=== PATIENT | female | born 1990 | race Caucasian/White ===

== ENCOUNTER → 2017-02-22 | Outpatient (CLI) | payer OTHER, BC ==
[2017-02-22 14:37] LABS: FASTING URINE GLUCOSE NEGATIVE
[2017-02-22 15:57] LABS: 1 HR URINE GLUCOSE NEGATIVE mg/ml
[2017-02-22 16:55] LABS: 2 HR URINE GLUCOSE TRACE mg/ml
[2017-02-22 17:52] LABS: 3 HR URINE GLUCOSE NEGATIVE mg/ml
== END ==
LOC: LAB 14:15
PROVIDERS: Obstetrics & Gynecology
DX: Z13.1 Encounter for screening for diabetes mellitus (principal)

== ENCOUNTER 2017-04-17 12:52 | Outpatient (CLI) | payer OTHER, BC ==
[~2017-04-17] VITALS: Ht 160 cm; Wt 88.0 kg
[~2017-04-17 12:52] MED LIST: PRENATA1 CTB PO
[2017-04-17 13:09] VITALS: BP 119/73
[2017-04-17 13:55] LABS: URINE BILIRUBIN - DIPSTICK NEGATIVE (NEG); URINE BLOOD NEGATIVE (NEG)
== END 2017-04-17 14:25 | disposition home or self-care (01) ==
LOC: OBOUT 12:52 → OB 12:54 → OBOUT 14:25
PROVIDERS: Nurse Practitioner Obstetrics & Gynecology
DX: O60.03 Preterm labor without delivery, third trimester (principal); Z3A.33 33 weeks gestation of pregnancy

== ENCOUNTER 2017-04-18 14:57 | Outpatient (CLI) | payer OTHER, BC ==
[~2017-04-18] VITALS: Ht 160 cm; Wt 88.0 kg
[2017-04-18 15:34] VITALS: BP 123/71
== END 2017-04-18 17:50 | disposition home or self-care (01) ==
LOC: OBOUT 14:57 → OB 14:58 → OBOUT 17:50
DX: O60.03 Preterm labor without delivery, third trimester (principal); Z3A.33 33 weeks gestation of pregnancy

== ENCOUNTER 2017-05-22 18:50 | Inpatient (IN) | payer OTHER, BC ==
[~2017-05-22] VITALS: Ht 157.5 cm; Wt 92.1 kg
[2017-05-22 19:28] VITALS: BP 128/76
[2017-05-22 19:32] LABS: URINE BILIRUBIN - DIPSTICK NEGATIVE (NEG); URINE BLOOD NEGATIVE (NEG)
[2017-05-22 19:50] LABS: URINE SQUAMOUS CELLS TNTC #/hpf (0-5)
[2017-05-22 20:30] LABS: HEMOGLOBIN 12.2 g/dL (12.2-16.2); LYMPH # 1.8 K/mm3 (0.7-4.5); LYMPH % 15.8 % (10-50.0)
[2017-05-22 21:22] LABS: ABO BLOOD TYPE A; RH BLOOD TYPE POSITIVE
--- NOTE | 2017-05-22 21:35 | LABOR NOTE ---
Laboring Subjective Subjective Date 05/22/17 Time 2132 Subjective: Pt is having regular contractions Laboring Objective Objective NST: Reactive Contractions: q 2-3 minutes Cervical dilation: 5 Effacement: 90% Station: -2 Membranes are: Artificially ruptured (with clear fluid) Fetus monitoring? Yes Type: Internal and External Comment: clip applied Laboring Assessment Assessment Progressing? Yes Cephalopelvic disproportion? No Problem List: 1. Delivery normal Laboring Plan Plan Anethesia for epidural? Yes Continue to labor down? Yes Plan for ? No Continue to monitor? Yes Start pushing? No at 2139
--- NOTE | 2017-05-22 22:45 | Delivery Note ---
Delivery note Delivery date: 05/22/17 Delivery time: 2230 Anesthesia: Rafal Reyes, epidural Was labor medically induced? No Gestational age in weeks: 38 weeks Days: 1 day Delivery prior to 39 weeks? Yes Justification for delivery: Active labor Sex: female score at one minute: 8 at 5 minutes: 9 Type of suction: bulb AF: Clear fluid LAC or MLE: none (none) Delivery procedure: Normal Delivery Delivery of placenta: spontaneous Clinical note She is a 27-year-old 4 para 3 who is 38 and 1 weeks gestational age. She came in in active labor and was found be katherin. She rapidly progressed from 2-5 cm and then from 5 cm to full dilation. She delivered spontaneously a liveborn female child at 10:31 PM in the evening of May 22, 2017. The baby had Apgars of 8 at 1 minute and 9 at 5 minutes. PH is currently pending. On delivery the head, it was noted that there was a loose nuchal cord. This was easily reduced. This was followed by deliver the anterior shoulder and the rest of the 's body atraumatically. The oropharynx and nasopharynx were bulb suction. We allowed the baby's cord to continue to pulsate for approximately 1 minute. We then doubly clamped and cut the cord and the baby was placed on the mother's abdomen for further care. The nurses assigned Apgars of 8 at 1 minute and 9 at 5 minutes. We then obtained cord blood as well as cord pH. The pH is pending. Using gentle traction on the cord and countertraction the fundus I was able to easily deliver the placenta intact. It had a normal three-vessel cord. There were no perineal or vaginal lacerations. She has a positive blood, she is rubella immune and was group B streptococcus negative. She plans to breast-feed. Her estimated blood loss was approximately 400 mL. at 3506
[2017-05-23 06:33] LABS: HEMOGLOBIN 10.9 g/dL (12.2-16.2)
[2017-05-23 08:02] VITALS: BP 110/65
--- NOTE | 2017-05-23 08:56 | ACUTE CARE PROGRESS NOTE (QUA) ---
Progress Notes Subjective Date 05/23/17 Time 0855 Note She is doing very well this morning. She is eating and drinking and ablating. She is breast-feeding. Her lochia is normal. Patient/family reports: feeling better, no complaints Objective Findings Last VS-Temp:98.0 B/P:110/65 Pulse:82 Resp:20 SaO2: Last weight lbs:203 oz:0 K.080 Method:Floor Scales Laboratory Tests 05/23/17 0610: Hgb 10.9 L, Hct 31.9 L 05/22/17 224: Cord Blood pH 7.29 L 05/22/172014: MCH 30.3 05/22/172014: WBC 11.7 H, RBC 4.02 L, Hgb 12.2, Hct 35.3 L, MCV 87.9, RDW 12.4, Plt Count 283, MPV 8.0, Gran % 76.8, Gran # 9.0 H, Lymphocytes % 15.8, Monocytes % 5.3, Eosinophils % 1.9, Basophils % 0.2, Lymphocytes # 1.8, Monocytes # 0.6, Eosinophils # 0.2, Basophils # 0.0, PUBS MCHC 34.5, Antibody Screen NEGATIVE, Miscellaneous Test POSITIVE 05/22/17 190: Urine Color YELLOW, Urine Appearance CLEAR, Urine pH 6.0, Ur Specific [place] 1.025, Urine Protein NEGATIVE, Urine Ketones TRACE H, Urine Blood NEGATIVE, Urine Nitrate NEGATIVE, Urine Bilirubin NEGATIVE, Urine Urobilinogen 0.2, Ur Leukocyte Esterase NEGATIVE, Urine RBC OCC, Urine WBC 3-5, Ur Squamous Epith Cells TNTC, Calcium Oxalate Crystal 3+, Urine Bacteria 3+, Urine Mucus 3+, Urine Glucose NEGATIVE Microbiology 05/22 1900 URINE CC: Urine Culture - RES Exam General appearance: normal appearance, alert, awake, no acute distress Reviewed: vital signs, lab results Assessment/Plan Problem List 1. Delivery normal Patient condition Improving, Stable Plan: continue current care This inpt stay is expected to cross 2 MNs from start of care Yes Comments: She is doing very well this morning. She will be seen by Dr. Jacobs tomorrow who will discharge her. at 0855
[2017-05-23 20:20] VITALS: BP 119/79
--- NOTE | 2017-05-24 06:58 | ACUTE CARE PROGRESS NOTE (QUA) ---
Progress Notes Subjective Date 05/24/17 Time 0657 Note This is day number 2. The patient is afebrile. Vital signs stable. Abdomen soft. Lochia normal. Uterine fundus involuting well. Hemoglobin 10.9 g, but clinically stable. Breast-feeding well. Impression: Stable. Assessment/Plan Problem List 1. Delivery normal This inpt stay is expected to cross 2 MNs from start of care Yes at 0658
[2017-05-24 07:52] VITALS: BP 114/73
[2017-05-24 20:00] VITALS: BP 109/64
[2017-05-25 09:00] VITALS: BP 115/70
[2017-05-25] MEDS ORDERED: ACETAMINOPHEN325 M2 PO (10:40)
[2017-05-25] MEDS ORDERED: IBUPROFEN400 MG PO (10:41)
--- OUTSIDE RECORDS SUMMARY | 2017-05-25 14:36 | External Medical Summary Rpt | CCD ---
Author Author , SMITHA BONE Address Unknown Phone [email or web address] Resume Purpose Continuity of Care Document - 01-18-2015 through 2016 Problems Code Diagnosis DOS Provider Status N91.2 Amenorrhea, unspecified O09.891 Supervision of other high risk pregnancies , first trimester O44.12 Placenta previa with hemorrhage, second trimester O80 Encounter for full-term uncomplicat ed delivery O99.810 Abnormal glucose complicatin g R73.09 Other abnormal glucose Z23 Encounter for immunizatio n Z34.81 Encounter for supervision of other normal , first trimester Z34.83 Encounter for supervision of other normal , third trimester Z34.92 Encounter for supervision of normal , unspecified , second trimester Z34.93 Encounter for supervision of normal , unspecified , third trimester Results Labs Lab Lab Date Result Refere Interp Status Commen Order Detail nces retati t Range on Urinalysis dipstick W Reflex Microscopic panel in Urine (05-22-2017 19:00) Bacteri 3+ O complet a 017 ed [Presen 19:00 ce] in Urine sedimen t by Light microsc opy Calcium 05-22-2 3+ NONE complet 017 ed oxalate 19:00 crystal s [Presen ce] in Urine sedimen t by Light microsc opy Mucus 05-22- 3+ OCC complet [Presen 017 ed ce] in 19:00 Urine sedimen t by Light microsc opy Erythro --2 OCC 0 complet cytes 017 ed [Presen 19:00 ce] in Urine sedimen t by Light microsc opy Epithel 05-22-2 TNTC 0#/hp complet ial 017 f - ed cells.s 19:00 5#/hp quamous f [Presen ce] in Urine sedimen t by Microsc opy high power field Leukocy 05-22-2 3-5 O complet devonte 017 wbc/hpf ed [#/volu 19:00 me] in Urine Urinalysis dipstick W Reflex Microscopic panel in Urine (05-22-2017 19:00) Appeara CLEAR CLEAR complet nce of 017 ed Urine 19:00 Bilirub NEGATIV NEG complet in 017 E ed [Presen 19:00 ce] in Urine by Test strip Erythro NEGATIV NEG complet cytes 017 E ed [Presen 19:00 ce] in Urine Color YELLOW YELLOW complet of 017 ed Urine 19:00 Ketones TRACE NEG Abnorma complet 017 l ed [Presen 19:00 ce] in Urine by Automat ed test strip Mucus NEGATIV NEG complet [Presen 017 E ed ce] in 19:00 Urine sedimen t by Light microsc opy Nitrite NEGATIV NEG complet 017 E ed [Presen 19:00 ce] in Urine by Test strip Urobili 0.2 NEG complet nogen 017 ed [Presen 19:00 ce] in Urine by Test strip Uijpq-3-Hbzwhlndirsfv.placental [Presence] in Vaginal fluid (04-18-2017 15:15) Alpha-1 NEGATIV complet -Microg 017 E FOR ed lobulin 15:15 RUPTURE .placen melissa [Presen ce] in Vaginal fluid Urinalysis dipstick W Reflex Microscopic panel in Urine (04-17-2017 13:14) Bacteri 2+ O complet a 017 ed [Presen 13:14 ce] in Urine sedimen t by Light microsc opy Erythro OCC 0 complet cytes 017 ed [Presen 13:14 ce] in Urine sedimen t by Light microsc opy Epithel 5-10 0#/hp complet ial 017 f - ed cells.s 13:14 5#/hp quamous f [Presen ce] in Urine sedimen t by Microsc opy high power field Leukocy 3-5 O complet devonte 017 wbc/hpf ed [#/volu 13:14 me] in Urine Urinalysis dipstick W Reflex Microscopic panel in Urine (04-17-2017 13:14) Appeara CLEAR CLEAR complet nce of 017 ed Urine 13:14 Bilirub NEGATIV NEG complet in 017 E ed [Presen 13:14 ce] in Urine by Test strip Erythro NEGATIV NEG complet cytes 017 E ed [Presen 13:14 ce] in Urine Color YELLOW YELLOW complet of 017 ed Urine 13:14 Ketones NEGATIV NEG complet 017 E ed [Presen 13:14 ce] in Urine by Automat ed test strip Mucus TRACE NEG Abnorma complet [Presen 017 l ed ce] in 13:14 Urine sedimen t by Light microsc opy Nitrite NEGATIV NEG complet 017 E ed [Presen 13:14 ce] in Urine by Test strip Urobili 0.2 NEG complet nogen 017 ed [Presen 13:14 ce] in Urine by Test strip Drugs identified in Urine by Screen method (03-09-2017 15:10) Ampheta NEGATIV <1000 complet mine 017 E ed [Presen 15:10 ce] in Urine by Screen method 11-Hydr NEGATIV <50 complet oxy 017 E ed delta-9 15:10 tetrahy drocann abinol [Presen ce] in Unspeci fied specime n Urinalysis dipstick W Reflex Microscopic panel in Urine (03-09-2017 15:10) Bacteri 3+ O complet a 017 ed [Presen 15:10 ce] in Urine sedimen t by Light microsc opy Erythro TNTC 0 complet cytes 017 ed [Presen 15:10 ce] in Urine sedimen t by Light microsc opy Epithel 5-10 0#/hp complet ial 017 f - ed cells.s 15:10 5#/hp quamous f [Presen ce] in Urine sedimen t by Microsc opy high power field Leukocy 10-20 O complet devonte 017 wbc/hpf ed [#/volu 15:10 me] in Urine Urinalysis dipstick W Reflex Microscopic panel in Urine (03-09-2017 15:10) Appeara TURBID CLEAR complet nce of 017 ed Urine 15:10 Bilirub NEGATIV NEG complet in 017 E ed [Presen 15:10 ce] in Urine by Test strip Erythro 3+ NEG Abnorma complet cytes 017 l ed [Presen 15:10 ce] in Urine Color DK YELLOW complet of 017 YELLOW ed Urine 15:10 Ketones NEGATIV NEG complet 017 E ed [Presen 15:10 ce] in Urine by Automat ed test strip Mucus NEGATIV NEG complet [Presen 017 E ed ce] in 15:10 Urine sedimen t by Light microsc opy Nitrite NEGATIV NEG complet 017 E ed [Presen 15:10 ce] in Urine by Test strip Urobili 0.2 NEG complet nogen 017 ed [Presen 15:10 ce] in Urine by Test strip Glucose [Mass/volume] in Serum or Plasma --3 hours post XXX challenge (02-22-2017 14:16) Glucose NEGATIV complet 017 E ed [Presen 14:16 ce] in Urine by Test strip Glucose TRACE complet 017 ed [Presen 14:16 ce] in Urine by Test strip --2 hours post dose glucose Glucose NEGATIV complet 017 E ed [Presen 14:16 ce] in Urine by Test strip --3 hours post dose glucose Glucose NEGATIV complet 017 E ed [Presen 14:16 ce] in Urine by Automat ed test strip Glucose [Presence] in Urine by Test strip --1 hour post 75 g glucose PO (02-18-2017 14:51) Glucose NEGATIV complet 017 E ed [Presen 14:51 ce] in Urine by Test strip
--- OUTSIDE RECORDS SUMMARY | 2017-05-25 14:36 | External Medical Summary Rpt | CCD ---
Author Author , SMITHA BONE Address Unknown Phone [email or web address] Purpose Continuity of Care Document - 01-18-2015 [...] 19:00 ce] in Urine by Test strip Nesyc-2-Hwaoqwjsntjxq.placental [Presence] in Vaginal fluid (04-18-2017 15:15) Alpha-1 [...]
--- OUTSIDE RECORDS SUMMARY | 2017-05-25 14:37 | External Medical Summary Rpt | CCD ---
Author Author [employer] Organization [employer] Address Unknown Phone Unavailable Purpose Continuity of Care Document - through 2016
--- OUTSIDE RECORDS SUMMARY | 2017-05-25 14:37 | External Medical Summary Rpt | CCD ---
Author Author , SMITHA PRADOSTEPHANIE Address Unknown Phone [email or web address] Support Name Relationship Address Phone ANTOINE, Next Of Kin Unknown Unavailable JANIYA Immunization Name Date Rout CVX Reac Dose Comm Prov Is Faci e tion ent ider Refu lity Give sed n Tdap 09-1 115 0.5 Hist D200 No D200 , 4-20 mL oric 31 31 Adso 17 al rbed Info rmat ion - Sour ce Unsp ecif ied Infl 11-0 150 999 Hist 1005 No 1005 uenz 5-20 oric 00 00 a 16 al Quad Info Inj rmat ion - Sour ce Unsp ecif ied Tdap 08-1 115 999 Hist 1005 No 1005 , 0-20 oric 00 00 Adso 16 al rbed Info rmat ion - Sour ce Unsp ecif ied Hep 01-1 45 999 Hist [place] No [place] B, 4-20 oric UF 13 al Info rmat ion - Sour ce Unsp ecif ied PCV1 08-1 133 999 Hist [place] No FL 3 6-20 oric 12 al Info rmat ion - Sour ce Unsp ecif ied Hep 08-1 85 999 Hist [place] No [place] A, 6-20 oric UF 12 al Info rmat ion - Sour ce Unsp ecif ied Tdap 02-0 115 999 Hist [place] No [place] , 2-20 oric Adso 12 al rbed Info rmat ion - Sour ce Unsp ecif ied Hep 02-0 85 999 Hist [place] No [place] A, 2-20 oric UF 12 al Info rmat ion - Sour ce Unsp ecif ied HPV4 06-1 62 999 Hist [place] No [place] 3-20 oric (Gar 11 al dasi Info l) rmat ion - Sour ce Unsp ecif ied HPV4 02-0 Intr 62 999 Hist [place] No [place] 9-20 amus oric (Gar 11 cula al dasi r Info l) rmat ion - Sour ce Unsp ecif ied HPV4 12-0 Intr 62 999 Hist [place] No [place] 8-20 amus oric (Gar 10 cula al dasi r Info l) rmat ion - Sour ce Unsp ecif ied Infl 12-0 Intr 999 Hist [place] No [place] uenz 8-20 amus oric a 10 cula al Nasa r Info l UF rmat ion - Sour ce Unsp ecif ied
--- OUTSIDE RECORDS SUMMARY | 2017-05-25 14:37 | External Medical Summary Rpt | CCD ---
Author Author , SMITHA PRADOSTEPHANIE Address Unknown Phone [email or web address] Support Name Relationship Address Phone ANTOINE, Next [...] ecif ied Hep 01-1 45 999 Hist [place] No NE B, 4-20 oric UF 13 al Info rmat ion - Sour ce Unsp ecif ied PCV1 08-1 133 999 Hist [place] No NE 3 6-20 oric 12 al Info rmat ion - Sour ce Unsp ecif ied Hep 08-1 85 999 Hist [place] No NE A, 6-20 oric UF 12 al Info rmat ion - Sour ce Unsp ecif ied Tdap 02-0 115 999 Hist [place] No [place] , 2-20 oric Adso 12 al rbed Info rmat ion - Sour ce Unsp ecif ied Hep 02-0 85 999 Hist [place] No NE A, 2-20 oric UF 12 al Info rmat ion - Sour ce Unsp ecif ied HPV4 06-1 62 999 Hist [place] No NE 3-20 oric (Gar 11 al dasi Info l) rmat ion - Sour ce Unsp ecif ied HPV4 02-0 Intr 62 999 Hist [place] No NE 9-20 amus oric (Gar 11 cula al dasi r Info l) rmat ion - Sour ce Unsp ecif ied HPV4 12-0 Intr 62 999 Hist [place] No NE 8-20 amus oric (Gar 10 cula al dasi r Info l) rmat ion - Sour ce Unsp ecif ied Infl 12-0 Intr 999 Hist [place] No NE uenz 8-20 amus oric a 10 cula al Nasa r Info l UF rmat ion - Sour ce Unsp ecif ied
--- OUTSIDE RECORDS SUMMARY | 2017-05-25 14:38 | External Medical Summary Rpt ---
Author Author [employer] Sheets, [employer] Organization [employer] Address Unknown Phone Unavailable Results Urinalysis dipstick W Reflex Microscopic panel in Urine Observa Value Referen Units Interpr Notes Date tion ce etation Range Collected by nurse? Y Hold specimen in OE? N Appeara CLEAR CLEAR No No No May 22 nce of informa informa informa 2017 Urine tion in tion in tion in 7:00 PM source source source data data data Bacteri 3+ O No No No May 22 a informa informa informa 2016 [Presen tion in tion in tion in 7:00 PM ce] in source source source Urine data data data sedimen t by Light microsc opy Bilirub NEGATIV NEG No No No May 22 in E informa informa informa 2016 [Presen tion in tion in tion in 7:00 PM ce] in source source source Urine data data data by Test strip Erythro NEGATIV NEG No No No May 22 cytes E informa informa informa 2016 [Presen tion in tion in tion in 7:00 PM ce] in source source source Urine data data data Calcium 3+ NONE #/hpf No No May 22 informa informa 2017 oxalate tion in tion in 7:00 PM source source crystal data data s [Presen ce] in Urine sedimen t by Light microsc opy Color YELLOW YELLOW No No No May 22 of informa informa informa 2017 Urine tion in tion in tion in 7:00 PM source source source data data data Glucose NEG No No No May 22 [Mass/vol informati informati informati 2017 7:00 ume] in on in on in on in PM Urine by source source source Test data data data strip Ketones TRACE NEG mg/dL Abnorma No May 22 l informa 2016 [Presen tion in 7:00 PM ce] in source Urine data by Automat ed test strip Mucus NEGATIV NEG No No No May 22 [Presen E informa informa informa 2016 ce] in tion in tion in tion in 7:00 PM Urine source source source sedimen data data data t by Light microsc opy Mucus 3+ OCC No No No May 22 [Presen informa informa informa 2016 ce] in tion in tion in tion in 7:00 PM Urine source source source sedimen data data data t by Light microsc opy Nitrite NEGATIV NEG No No No May 22 E informa informa informa 2016 [Presen tion in tion in tion in 7:00 PM ce] in source source source Urine data data data by Test strip pH of 5.0 - 8.5 No Normal No May 22 Urine informati informati 2017 7:00 on in on in PM source source data data Protein NEG mg/dL No No May 22 [Mass/vol informati informati 2016 7:00 ume] in on in on in PM Urine by source source Automated data data test strip Erythro OCC 0 rbc/hpf No No May 22 cytes informa informa 2016 [Presen tion in tion in 7:00 PM ce] in source source Urine data data sedimen t by Light microsc opy Specific 1.005 - No Normal No May 22 gravity 1.030 informati informati 2017 7:00 of Urine on in on in PM source source data data Epithel TNTC 0 - 5 #/hpf No No May 22 ial informa informa 2017 cells.s tion in tion in 7:00 PM quamous source source data data [Presen ce] in Urine sedimen t by Microsc opy high power field Urobili 0.2 NEG E.U./dL No No May 22 nogen informa informa 2016 [Presen tion in tion in 7:00 PM ce] in source source Urine data data by Test strip Leukocy [3 O wbc/hpf No No May 22 jorge alberto wbc/hpf informa informa 2016 [#/volu ; 5 tion in tion in 7:00 PM me] in wbc/hpf source source Urine ] data data Urinalysis dipstick W Reflex Microscopic panel in Urine Observa Value Referen Units Interpr Notes Date tion ce etation Range Collected by nurse? Y Hold specimen in OE? N Appeara CLEAR CLEAR No No No May 22 nce of informa informa informa 2017 Urine tion in tion in tion in 7:00 PM source source source data data data Bilirub NEGATIV NEG No No No May 22 in E informa informa informa 2016 [Presen tion in tion in tion in 7:00 PM ce] in source source source Urine data data data by Test strip Erythro NEGATIV NEG No No No May 22 cytes E informa informa informa 2016 [Presen tion in tion in tion in 7:00 PM ce] in source source source Urine data data data Color YELLOW YELLOW No No No May 22 of informa informa informa 2016 Urine tion in tion in tion in 7:00 PM source source source data data data Glucose NEG No No No May 22 [Mass/vol informati informati informati 2016 7:00 ume] in on in on in on in PM Urine by source source source Test data data data strip Ketones TRACE NEG mg/dL Abnorma No May 22 l informa 2016 [Presen tion in 7:00 PM ce] in source Urine data by Automat ed test strip Mucus NEGATIV NEG No No No May 22 [Presen E informa informa informa 2016 ce] in tion in tion in tion in 7:00 PM Urine source source source sedimen data data data t by Light microsc opy Nitrite NEGATIV NEG No No No May 22 E informa informa informa 2016 [Presen tion in tion in tion in 7:00 PM ce] in source source source Urine data data data by Test strip pH of 5.0 - 8.5 No Normal No May 22 Urine informati informati 2016 7:00 on in on in PM source source data data Protein NEG mg/dL No No May 22 [Mass/vol informati informati 2016 7:00 ume] in on in on in PM Urine by source source Automated data data test strip Specific 1.005 - No Normal No May 22 gravity 1.030 informati informati 2016 7:00 of Urine on in on in PM source source data data Urobili 0.2 NEG E.U./dL No No May 22 nogen informa informa 2016 [Presen tion in tion in 7:00 PM ce] in source source Urine data data by Test strip POC UA Observa Value Referen Units Interpr Notes Date tion ce etation Range UA Tasha No No No No May 4 Color informa informa informa informa 2017 POC tion in tion in tion in tion in 11:56 source source source source AM data data data data UA Clear Clear No No No Oct 4 Appear informa informa informa 2017 POC tion in tion in tion in 11:56 source source source AM data data data UA Gluc Negativ Negativ No No No May 4 POC e e informa informa informa 2017 tion in tion in tion in 11:56 source source source AM data data data UA Trace Negativ No Abnorma No May 4 Ketones (5mg/dl e informa l informa 2017 POC ) tion in tion in 11:56 source source AM data data UA Negativ Negativ No No No May 4 Blood e e informa informa informa 2017 POC tion in tion in tion in 11:56 source source source AM data data data UA pH 5.5 5.0 - No No No May 15 POC 8.0 informa informa informa 2017 tion in tion in tion in 11:56 source source source AM data data data UA 30 Negativ No Abnorma No May 4 Protein mg/dl e informa l informa 2017 POC tion in tion in 11:56 source source AM data data UA 1 mg/dl <=1 No No No May 4 Urobili mg/dl informa informa informa 2017 nogen tion in tion in tion in 11:56 POC source source source AM data data data UA Negativ Negativ No No No May 4 Nitrite e e informa informa informa 2017 POC tion in tion in tion in 11:56 source source source AM data data data UA Leuk Negativ Negativ No No No May 4 Est e e informa informa informa 2017 POC tion in tion in tion in 11:56 source source source AM data data data UA SG >=1.030 1.001 - No No No May 4 POC 1.035 informa informa informa 2017 tion in tion in tion in 11:56 source source source AM data data data Bzliy-4-Vmbzlkgpozumz.placental [Presence] in Vaginal fluid Observa Value Referen Units Interpr Notes Date tion ce etation Range Alpha-1 NEGATIV No No No No Sep 7 -Microg E FOR informa informa informa informa 2017 lobulin RUPTURE tion in tion in tion in tion in 3:15 PM .placen source source source source melissa data data data data [Presen ce] in Vaginal fluid Fibronectin. [Mass/volume] in Vaginal fluid Observa Value Referen Units Interpr Notes Date tion ce etation Range Fibronect NEGATIVE No No Sep 6 in. informati informati FIBRONECT 2017 1:15 [Mass/vol on in on in IN PM ume] in source source INTERPRET Vaginal data data ATION:Sym fluid ptomatic women: There is an increased risk of deliveryw ithin 14 days for positive results obtained between 24weeks and 34 weeks,6 days of gestation .Asymptom atic women: There is an increased risk of deliverya t less than 35 weeks for positive results obtained weeks and 30 weeks,6 days of gestation . Urinalysis dipstick W Reflex Microscopic panel in Urine Observa Value Referen Units Interpr Notes Date tion ce etation Range Collected by nurse? Y Hold specimen in OE? N Appeara CLEAR CLEAR No No No Sep 6 nce of informa informa informa 2017 Urine tion in tion in tion in 1:14 PM source source source data data data Bacteri 2+ O No No No Sep 6 a informa informa informa 2017 [Presen tion in tion in tion in 1:14 PM ce] in source source source Urine data data data sedimen t by Light microsc opy Bilirub NEGATIV NEG No No No Sep 6 in E informa informa informa 2017 [Presen tion in tion in tion in 1:14 PM ce] in source source source Urine data data data by Test strip Erythro NEGATIV NEG No No No Sep 6 cytes E informa informa informa 2017 [Presen tion in tion in tion in 1:14 PM ce] in source source source Urine data data data Color YELLOW YELLOW No No No Sep 6 of informa informa informa 2017 Urine tion in tion in tion in 1:14 PM source source source data data data Glucose NEG No No No Sep 6 [Mass/vol informati informati informati 2017 1:14 ume] in on in on in on in PM Urine by source source source Test data data data strip Ketones NEGATIV NEG mg/dL No No Sep 6 E informa informa 2017 [Presen tion in tion in 1:14 PM ce] in source source Urine data data by Automat ed test strip Mucus TRACE NEG No Abnorma No Sep 6 [Presen informa l informa 2016 ce] in tion in tion in 1:14 PM Urine source source sedimen data data t by Light microsc opy Nitrite NEGATIV NEG No No No Sep 6 E informa informa informa 2017 [Presen tion in tion in tion in 1:14 PM ce] in source source source Urine data data data by Test strip pH of 5.0 - 8.5 No Normal No Sep 6 Urine informati informati 2017 1:14 on in on in PM source source data data Protein NEG mg/dL No No Sep 6 [Mass/vol informati informati 2017 1:14 ume] in on in on in PM Urine by source source Automated data data test strip Erythro OCC 0 rbc/hpf No No Sep 6 cytes informa informa 2017 [Presen tion in tion in 1:14 PM ce] in source source Urine data data sedimen t by Light microsc opy Specific 1.005 - No Normal No Sep 6 gravity 1.030 informati informati 2017 1:14 of Urine on in on in PM source source data data Epithel 5-10 0 - 5 #/hpf No No Sep 6 ial informa informa 2017 cells.s tion in tion in 1:14 PM quamous source source data data [Presen ce] in Urine sedimen t by Microsc opy high power field Urobili 0.2 NEG E.U./dL No No Sep 6 nogen informa informa 2017 [Presen tion in tion in 1:14 PM ce] in source source Urine data data by Test strip Leukocy [3 O wbc/hpf No No Sep 6 jorge alberto wbc/hpf informa informa 2017 [#/volu ; 5 tion in tion in 1:14 PM me] in wbc/hpf source source Urine ] data data Urinalysis dipstick W Reflex Microscopic panel in Urine Observa Value Referen Units Interpr Notes Date tion ce etation Range Collected by nurse? Y Hold specimen in OE? N Appeara CLEAR CLEAR No No No Sep 6 nce of informa informa informa 2017 Urine tion in tion in tion in 1:14 PM source source source data data data Bilirub NEGATIV NEG No No No Sep 6 in E informa informa informa 2017 [Presen tion in tion in tion in 1:14 PM ce] in source source source Urine data data data by Test strip Erythro NEGATIV NEG No No No Sep 6 cytes E informa informa informa 2016 [Presen tion in tion in tion in 1:14 PM ce] in source source source Urine data data data Color YELLOW YELLOW No No No Sep 6 of informa informa informa 2016 Urine tion in tion in tion in 1:14 PM source source source data data data Glucose NEG No No No Sep 6 [Mass/vol informati informati informati 2017 1:14 ume] in on in on in on in PM Urine by source source source Test data data data strip Ketones NEGATIV NEG mg/dL No No Sep 6 E informa informa 2016 [Presen tion in tion in 1:14 PM ce] in source source Urine data data by Automat ed test strip Mucus TRACE NEG No Abnorma No Sep 6 [Presen informa l informa 2016 ce] in tion in tion in 1:14 PM Urine source source sedimen data data t by Light microsc opy Nitrite NEGATIV NEG No No No Sep 6 E informa informa informa 2016 [Presen tion in tion in tion in 1:14 PM ce] in source source source Urine data data data by Test strip pH of 5.0 - 8.5 No Normal No Sep 6 Urine informati informati 2017 1:14 on in on in PM source source data data Protein NEG mg/dL No No Sep 6 [Mass/vol informati informati 2017 1:14 ume] in on in on in PM Urine by source source Automated data data test strip Specific 1.005 - No Normal No Sep 6 gravity 1.030 informati informati 2017 1:14 of Urine on in on in PM source source data data Urobili 0.2 NEG E.U./dL No No Sep 6 nogen informa informa 2017 [Presen tion in tion in 1:14 PM ce] in source source Urine data data by Test strip Fibronectin. [Mass/volume] in Vaginal fluid Observa Value Referen Units Interpr Notes Date tion ce etation Range Fibronect NEGATIVE No No Mar 09 in. informati informati FIBRONECT 2017 3:10 [Mass/vol on in on in IN PM ume] in source source INTERPRET Vaginal data data ATION:Sym fluid ptomatic women: There is an increased risk of deliveryw ithin 14 days for positive results obtained between 24weeks and 34 weeks,6 days of gestation .Asymptom atic women: There is an increased risk of deliverya t less than 35 weeks for positive results obtained [id number] weeks and 30 weeks,6 days of gestation . Drugs identified in Urine by Screen method Observa Value Referen Units Interpr Notes Date tion ce etation Range Collected by nurse? Y Hold specimen in OE? N Positive urine drug screen samples are stored for 7 days. Contact the Lab if confirmation of positives is needed. Ampheta NEGATIV <1000 ng/mL No No Mar 09 mine E informa informa 2016 [Presen tion in tion in 3:10 PM ce] in source source Urine data data by Screen method Barbitura <200 ng/mL No No Mar 09 jorge alberto informati informati 2017 3:10 [Mass/vol on in on in PM ume] in source source Urine by data data Screen method Benzodiaz 200 ng/mL ng/mL No No Mar 09 epines informati informati 2017 3:10 [Mass/vol on in on in PM ume] in source source Serum or data data Plasma by Screen method Cocaine <300 ng/g No No Mar 09 [Mass/vol informati informati 2017 3:10 ume] in on in on in PM Unspecifi source source ed data data specimen Methadone <300 ng/mL No No Mar 09 informati informati 2017 3:10 [Mass/vol on in on in PM ume] in source source Unspecifi data data ed specimen Opiates <300 ng/mL No No Mar 09 [Mass/vol informati informati 2017 3:10 ume] in on in on in PM Unspecifi source source ed data data specimen Phencycli <25 ng/mL No No Mar 09 dine informati informati 2017 3:10 [Mass/vol on in on in PM ume] in source source Unspecifi data data ed specimen 11-Hydr NEGATIV <50 ng/mL No No Mar 09 oxy E informa informa 2017 delta-9 tion in tion in 3:10 PM source source tetrahy data data drocann abinol [Presen ce] in Unspeci fied specime n Urinalysis dipstick W Reflex Microscopic panel in Urine Observa Value Referen Units Interpr Notes Date tion ce etation Range Collected by nurse? Y Hold specimen in OE? N Appeara TURBID CLEAR No No No Mar 09 nce of informa informa informa 2016 Urine tion in tion in tion in 3:10 PM source source source data data data Bacteri 3+ O No No No Mar 09 a informa informa informa 2016 [Presen tion in tion in tion in 3:10 PM ce] in source source source Urine data data data sedimen t by Light microsc opy Bilirub NEGATIV NEG No No No Mar 09 in E informa informa informa 2016 [Presen tion in tion in tion in 3:10 PM ce] in source source source Urine data data data by Test strip Erythro 3+ NEG No Abnorma No Mar 09 cytes informa l informa 2016 [Presen tion in tion in 3:10 PM ce] in source source Urine data data Color DK YELLOW No No No Mar 09 of YELLOW informa informa informa 2016 Urine tion in tion in tion in 3:10 PM source source source data data data Glucose NEG No No No Mar 09 [Mass/vol informati informati informati 2016 3:10 ume] in on in on in on in PM Urine by source source source Test data data data strip Ketones NEGATIV NEG mg/dL No No Mar 09 E informa informa 2016 [Presen tion in tion in 3:10 PM ce] in source source Urine data data by Automat ed test strip Mucus NEGATIV NEG No No No Mar 09 [Presen E informa informa informa 2016 ce] in tion in tion in tion in 3:10 PM Urine source source source sedimen data data data t by Light microsc opy Nitrite NEGATIV NEG No No No Mar 09 E informa informa informa 2016 [Presen tion in tion in tion in 3:10 PM ce] in source source source Urine data data data by Test strip pH of 5.0 - 8.5 No Normal No Mar 09 Urine informati informati 2017 3:10 on in on in PM source source data data Protein NEG mg/dL High No Mar 09 [Mass/vol informati 2017 3:10 ume] in on in PM Urine by source Automated data test strip Erythro TNTC 0 rbc/hpf No No Mar 09 cytes informa informa 2016 [Presen tion in tion in 3:10 PM ce] in source source Urine data data sedimen t by Light microsc opy Specific 1.005 - No Normal No Mar 09 gravity 1.030 informati informati 2017 3:10 of Urine on in on in PM source source data data Epithel 5-10 0 - 5 #/hpf No No Mar 09 ial informa informa 2016 cells.s tion in tion in 3:10 PM quamous source source data data [Presen ce] in Urine sedimen t by Microsc opy high power field Urobili 0.2 NEG E.U./dL No No Mar 09 nogen informa informa 2016 [Presen tion in tion in 3:10 PM ce] in source source Urine data data by Test strip Leukocy [10 O wbc/hpf No No Mar 09 jorge alberto wbc/hpf informa informa 2016 [#/volu ; 20 tion in tion in 3:10 PM me] in wbc/hpf source source Urine ] data data Urinalysis dipstick W Reflex Microscopic panel in Urine Observa Value Referen Units Interpr Notes Date tion ce etation Range Collected by nurse? Y Hold specimen in OE? N Appeara TURBID CLEAR No No No Mar 09 nce of informa informa informa 2016 Urine tion in tion in tion in 3:10 PM source source source data data data Bilirub NEGATIV NEG No No No Mar 09 in E informa informa informa 2016 [Presen tion in tion in tion in 3:10 PM ce] in source source source Urine data data data by Test strip Erythro 3+ NEG No Abnorma No Mar 09 cytes informa l informa 2016 [Presen tion in tion in 3:10 PM ce] in source source Urine data data Color DK YELLOW No No No Mar 09 of YELLOW informa informa informa 2017 Urine tion in tion in tion in 3:10 PM source source source data data data Glucose NEG No No No Mar 09 [Mass/vol informati informati informati 2016 3:10 ume] in on in on in on in PM Urine by source source source Test data data data strip Ketones NEGATIV NEG mg/dL No No Mar 09 E informa informa 2016 [Presen tion in tion in 3:10 PM ce] in source source Urine data data by Automat ed test strip Mucus NEGATIV NEG No No No Mar 09 [Presen E informa informa informa 2016 ce] in tion in tion in tion in 3:10 PM Urine source source source sedimen data data data t by Light microsc opy Nitrite NEGATIV NEG No No No Mar 09 E informa informa informa 2016 [Presen tion in tion in tion in 3:10 PM ce] in source source source Urine data data data by Test strip pH of 5.0 - 8.5 No Normal No Mar 09 Urine informati informati 2016 3:10 on in on in PM source source data data Protein NEG mg/dL High No Mar 09 [Mass/vol informati 2016 3:10 ume] in on in PM Urine by source Automated data test strip Specific 1.005 - No Normal No Mar 09 gravity 1.030 informati informati 2016 3:10 of Urine on in on in PM source source data data Urobili 0.2 NEG E.U./dL No No Mar 09 nogen informa informa 2016 [Presen tion in tion in 3:10 PM ce] in source source Urine data data by Test strip Glucose [Mass/volume] in Serum or Plasma --3 hours post XXX challenge Observa Value Referen Units Interpr Notes Date tion ce etation Range Glucose No mg/dL No No Feb 22 [Mass/vol informati informati informati 2016 2:16 ume] in on in on in on in PM Serum or source source source Plasma data data data --1 hour post dose glucose Glucose NEGATIV No mg/ml No No Feb 22 E informa informa informa 2016 [Presen tion in tion in tion in 2:16 PM ce] in source source source Urine data data data by Test strip Glucose No mg/dL No No Madi 14 [Mass/vol informati informati informati 2016 2:16 ume] in on in on in on in PM Serum or source source source Plasma data data data --2 hours post 100 g glucose PO Glucose TRACE No mg/ml No No Feb 22 informa informa informa 2016 [Presen tion in tion in tion in 2:16 PM ce] in source source source Urine data data data by Test strip --2 hours post dose glucose Glucose No mg/dL No No Feb 22 [Mass/vol informati informati informati 2016 2:16 ume] in on in on in on in PM Serum or source source source Plasma data data data --3 hours post 100 g glucose PO Glucose NEGATIV No mg/ml No No Feb 22 E informa informa informa 2016 [Presen tion in tion in tion in 2:16 PM ce] in source source source Urine data data data by Test strip --3 hours post dose glucose Glucose 70 - 110 mg/dL Normal No Feb 22 [Mass/vol informati 2016 2:16 ume] in on in PM Serum or source Plasma data --pre 12 hour fast Glucose NEGATIV No mg/dL No No Feb 22 E informa informa informa 2016 [Presen tion in tion in tion in 2:16 PM ce] in source source source Urine data data data by Automat ed test strip Glucose [Presence] in Urine by Test strip --1 hour post 75 g glucose PO Observa Value Referen Units Interpr Notes Date ce etation Range Glucose No mg/dL No No Feb 18 [Mass/vol informati informati informati 2016 2:51 ume] in on in on in on in PM Serum or source source source Plasma data data data --1 hour post dose glucose Glucose NEGATIV No mg/ml No No Feb 18 E informa informa informa 2016 [Presen tion in tion in tion in 2:51 PM ce] in source source source Urine data data data by Test strip CBC W Auto Differential panel in Blood Observa Value Referen Units Interpr Notes Date tion ce etation Range Basophils 0 - 0.2 K/MM3 Normal No Feb 18 informati 2016 2:51 [#/volume on in PM ] in source Blood by data Automated count Basophils 0.1 - 2.0 % Normal No Feb 18 informati 2016 2:51 leukocyte on in PM s in source Blood by data Automated count Eosinophi 0.0 - 0.4 K/mm3 Normal No Feb 18 ls 2016 2:51 [#/volume on in PM ] in source Blood by data Automated count Eosinophi 0.1 - % Normal No Feb 18 ls 12.0 inform2016 2:51 leukocyte on in PM s in source Blood by data Automated count Granulocy 1.8 - 7.8 K/mm3 High No Feb 18 jorge alberto 2016 2:51 [#/volume on in PM ] in source Blood by data Automated count Granulocy 37.0 - % High No Feb 18 80.0 informati 2016 2:51 leukocyte on in PM s in source Blood by data Automated count Hematocri 37.0 - % Normal No Feb 18 t [Volume 47.0 2016 2:51 on in PM Fraction] source of Blood data Hemoglobi 12.2 - g/dL Normal Feb 18 n 16.2 2016 2:51 [Mass/vol on in PM ume] in source Blood data Lymphocyt 0.7 - 4.5 K/mm3 Normal No Feb 18 es 2016 2:51 [#/volume on in PM ] in source Unspecifi data ed specimen by Automated count Lymphocyt 10 - 50.0 % Normal No Feb 18 es 2016 2:51 [#/volume on in PM ] in source Unspecifi data ed specimen by Automated count Erythrocy 27 - 31.2 pg High No Feb 18 te mean 2016 2:51 corpuscul on in PM ar source hemoglobi data n [Entitic mass] Erythrocy 31.8 - g/dl Normal No Feb 18 te mean 35.4 2016 2:51 corpuscul on in PM ar source hemoglobi data n concentra tion [Mass/vol ume] by Automated count Erythrocy 82.2 - fl Normal Feb 18 te mean 97.8 ati 2016 2:51 corpuscul on in PM ar volume source [Entitic data volume] by Automated count Monocytes 0.1 - 1.0 K/mm3 Normal No Feb 182016 2:51 [#/volume on in PM ] in source Blood by data Automated count Monocytes 1.7 - 9.3 % Normal No Feb 18 informati 2016 2:51 leukocyte on in PM s in source Blood by data Automated count Platelet 7.4 - fl Low No Feb 18 mean 10.4 ati 2016 2:51 volume on in PM [Entitic source volume] data in Blood by Automated count Platelets 142 - 424 K/mm3 Normal No Feb 18 inform2016 2:51 [#/volume on in PM ] in source Blood data Erythrocy 4.2 - 5.4 M/mm3 Low No Feb 18 jorge alberto 2016 2:51 [#/volume on in PM ] in source Amniotic data fluid Erythrocy 11.5 - % Normal No Feb 18 te 17.5 informati 2016 2:51 distribut on in PM ion width source [Entitic data volume] by Automated count Leukocyte 4.8 - K/MM3 Normal No Feb 18 s 10.8 2016 2:51 [#/volume on in PM ] in source Blood data AFP Tetra Observa Value Referen Units Interpr Notes Date tion ce etation Range Results REPORT No No No No January 01 informa informa informa informa 2017 tion in tion in tion in tion in 12:34 source source source source PM data data data data Alpha-1-F No No No No January 01 etoprotei informati informati informati informati 2016 n on in on in on in on in 12:34 PM [Mass/vol source source source source ume] in data data data data Serum or Plasma Alpha-1-F No No No No January 01 etoprotei informati informati informati informati 2016 n on in on in on in on in 12:34 PM [Multiple source source source source of the data data data data median] adjusted in Serum or Plasma Choriogon No No No No January 01 adotropin informati informati informati informati 2017 on in on in on in on in 12:34 PM [Units/vo source source source source lume] in data data data data Serum or Plasma Choriogon No No No No January 01 adotropin informati informati informati informati 2017 on in on in on in on in 12:34 PM [Multiple source source source source of the data data data data median] adjusted in Serum or Plasma Estriol.u No No No No January 01 nconjugat informati informati informati informati 2016 ed on in on in on in on in 12:34 PM [Mass/vol source source source source ume] in data data data data Serum or Plasma Estriol.u No No No No January 01 nconjugat informati informati informati informati 2017 ed on in on in on in on in 12:34 PM [Multiple source source source source of the data data data data median] adjusted in Serum or Plasma Inhibin A No No No No January 01 informati informati informati informati 2017 [Mass/vol on in on in on in on in 12:34 PM ume] in source source source source Serum data data data data Inhibin A No No No No January 01 informati informati informati informati 2017 [Multiple on in on in on in on in 12:34 PM of the source source source source median] data data data data adjusted in Serum Neural No No No No January 01 tube informati informati informati informati 2017 defect on in on in on in on in 12:34 PM risk in source source source source Fetus data data data data Trisomy No No No No January 01 21 risk informati informati informati informati 2017 in Fetus on in on in on in on in 12:34 PM source source source source data data data data Second SCREEN No No No No January 01 trimest NEGATIV informa informa informa informa 2017 er quad E tion in tion in tion in tion in 12:34 source source source source PM materna data data data data l screen [interp retatio n] in Serum Narrati ve Trisomy No No No No January 01 21 risk informati informati informati informati 2017 based on on in on in on in on in 12:34 PM maternal source source source source age in data data data data Fetus Trisomy No No No No January 01 18 risk informati informati informati informati 2017 in Fetus on in on in on in on in 12:34 PM source source source source data data data data Trisomy No No No No January 01 18 risk informati informati informati informati 2017 based on on in on in on in on in 12:34 PM maternal source source source source age in data data data data Fetus Second SCREEN No No No THIS January 01 trimest NEGATIV informa informa informa RESULT 2017 er quad E tion in tion in tion in IS 12:34 source source source SCREEN PM materna data data data NEGATIV l E FOR screen [interp OSB, retatio DOWN n] in SYNDROM Serum EAND Narrati TRISOMY ve 18. THE AFP MoM AND PATIENT SPECIFI C RISKS ARECALC ULATED BASED ON THE GESTATI ONAL AGE AND THE CLINICA LINFORM ATION PROVIDE D. THIS TEST CAN IDENTIF Y UP TO 80% OFOPEN NEURAL TUBE DEFECTS . CLOSED NEURAL TUBE DEFECTS AND SOME OPEN DEFECTS MAY NOT BE DETECTE D BY THIS TEST. THECOMB INATION OF MATERNA L AGE, AFP, hCG, uE3, AND DIAINDE NTIFIES 75-80% OF DOWN SYNDROM E. THE COMBINA TIONOF MATERNA L AGE, AFP, hCG AND uE3 IDENTIF IES 60% OF TRISOMY 18 PREGNAN CIES. THE CINTHIA N COLLEGE OF OBSTETR ICIANS ANDGYNE COLOGIS TS RECOMME NDS AMNIOCE NTESIS BE OFFERED TO WOMENAG E 35 AND OLDER. RECALCU LATIONS ARE NOT RECOMME NDED WHENGES TATIONA L DATING BY LMP AND ULTRASO UND ARE WITHIN 10 DAYS.ABILIO Nuñez, Ph.D., FACMGPR INCIPAL GENETIC S TECHNIC AL DIRECTO RREFERE NCES: AVAILAB LE UPON REQUEST .MULTIP LES OF MEDIAN CUTOFFS FOR AFP ELEVATI ONSSING LETON 2.5IDD 2.0BLAC K 2.8TWIN S 4.5DSR CUTOFF 1:270T1 8 CUTOFF 1:100AB BREVIAT ION DEFINIT IONSIDD - INSULIN DEP DIABETE SOSBR- OPEN SPINA BIFIDA RISKDSR - DOWN SYNDROM E RISKT18 - TRISOMY 18DOWN SYNDROM E AND TRISOMY 18 SCREENI NG ARE CONSIDE REDINVE STIGATI ONAL.FO R FURTHER INQUIRI ES CONTACT [facility] S [phone] NE. Gestation No No No No January 01 al age informati informati informati informati 2016 on in on in on in on in 12:34 PM source source source source data data data data Gestati FREEDOM No No No No January 01 onal informa informa informa informa 2017 age 16 tion in tion in tion in tion in 12:34 method source source source source PM data data data data Age at No No No No January 01 delivery informati informati informati informati 2016 on in on in on in on in 12:34 PM source source source source data data data data Mother' CAUCASI No No No No January 01 s race AN informa informa informa informa 2017 tion in tion in tion in tion in 12:34 source source source source PM data data data data Body No No No No January 01 weight informati informati informati informati 2017 on in on in on in on in 12:34 PM source source source source data data data data Insulin NO No No No No January 01 informa informa informa informa 2016 depende tion in tion in tion in tion in 12:34 nt source source source source PM diabete data data data data s mellitu s [Presen ce] Multipl NO No No No No January 01 e informa informa informa informa 2016 preganc tion in tion in tion in tion in 12:34 y source source source source PM data data data data Hep C Ab Observa Value Referen Units Interpr Notes Date tion ce etation Range Hep C Negativ Negativ No No No Oct 10 Ab e e informa informa informa 2016 tion in tion in tion in 10:30 source source source AM data data data Hep Bs Ag Observa Value Referen Units Interpr Notes Date tion ce etation Range Hepatit Negativ Negativ No No No Oct 10 is B e e informa informa informa 2017 virus tion in tion in tion in 10:29 surface source source source AM Ag data data data [Presen ce] in Serum by Immunoa ssay Rubella G Observa Value Referen Units Interpr Notes Date tion ce etation Range Rubella 1.660 No Index_V No < 0.90 Oct 10 IgG informa alue informa - 2017 tion in tion in Negativ 8:27 AM source source e\\.br\\N data data o signifi cant level of detecta ble rubella IgG Antibod y\\.br\\( Presume d Non-Imm une)\\.b r\\\\.br\\ 0.90 to 0.99 - Equivoc al\\.br\\ Repeat testing in 10-14 days is recomme nded\\.b r\\\\.br\\ > or = 1.00 - Positiv e\\.br\\P revious exposur e or vaccina tion (Immune )\\.br\\\\ .br\\Not e: The magnitu de of the measure d result is not indicat mitchell of the amount of antibod y present . Glyco Observa Value Referen Units Interpr Notes Date tion ce etation Range Hemoglo 4.8 <=7.0 % No Referen Oct 09 bin informa ce 2017 A1c/Hem tion in Interva 7:14 PM oglobin source l for .total data Hgb in A1c\\.br Blood \\\\.br\\H gb A1c Interpr etation \\.br\\-- ------- -- ------- ------- --\\.br\\ \\.br\\ < 6.0 Non-Antonia betic Range\\. br\\6.0 - 7.0 ADA Therape utic Target\\ .br\\ > 7.0 Action suggest ed ABSC IgG Observa Value Referen Units Interpr Notes Date tion ce etation Range ABSC Negativ No No No No Oct 09 IgG Int e informa informa informa informa 2016 tion in tion in tion in tion in 6:53 PM source source source source data data data data ABORh Observa Value Referen Units Interpr Notes Date tion ce etation Range ABORh A POS No No No No Oct 09 Int informa informa informa informa 2016 tion in tion in tion in tion in 6:44 PM source source source source data data data data Auto Diff Observa Value Referen Units Interpr Notes Date tion ce etation Range Neutrop 65.1 No % No No Oct 09 hils informa informa informa 2016 [#/volu tion in tion in tion in 6:10 PM me] in source source source Blood data data data by Automat ed count Lymphoc 23.5 No % No No Oct 09 ytes informa informa informa 2016 [#/volu tion in tion in tion in 6:10 PM me] in source source source Blood data data data by Automat ed count Monocyt 7.9 No % No No Oct 09 es informa informa informa 2016 [#/volu tion in tion in tion in 6:10 PM me] in source source source Blood data data data by Automat ed count Eos 2.9 No % No No Feb 28 Percent informa informa informa 2017 tion in tion in tion in 6:10 PM source source source data data data Baso 0.6 No % No No Feb 28 Percent informa informa informa 2017 tion in tion in tion in 6:10 PM source source source data data data Neut# 4.0 1.8 - x10(3)/ No No Feb 28 7.7 mcL informa informa 2017 tion in tion in 6:10 PM source source data data Lymph# 1.4 0.6 - x10(3)/ No No Feb 28 4.8 mcL informa informa 2017 tion in tion in 6:10 PM source source data data Wirt# 0.5 0.0 - x10(3)/ No No Feb 28 1.3 mcL informa informa 2017 tion in tion in 6:10 PM source source data data Eos# 0.2 0.0 - x10(3)/ No No Feb 28 0.5 mcL informa informa 2017 tion in tion in 6:10 PM source source data data Baso# 0.0 0.0 - x10(3)/ No No Feb 28 0.2 mcL informa informa 2017 tion in tion in 6:10 PM source source data data CBC Observa Value Referen Units Interpr Notes Date tion ce etation Range LEUKOCY 6.1 4.0 - x10(3)/ No No Feb 28 JORGE ALBERTO 11.0 mcL informa informa 2017 tion in tion in 6:10 PM source source data data Erythro 4.44 3.80 - x10(6)/ No No Feb 28 cytes 5.10 mcL informa informa 2016 [#/volu tion in tion in 6:10 PM me] in source source Blood data data by Automat ed count Hemoglo 14.0 12.0 - gm/dL No No Feb 28 bin 15.6 informa informa 2017 [Mass/v tion in tion in 6:10 PM olume] source source in data data Blood Hematoc 41.0 35.7 - % No No Feb 28 rit 45.9 informa informa 2017 [Volume tion in tion in 6:10 PM source source Fractio data data n] of Blood by Automat ed count Erythro 92.5 82.5 - fL No No Oct 09 cyte 99.8 informa informa 2017 mean tion in tion in 6:10 PM corpusc source source ular data data volume [Entiti c volume] by Automat ed count Erythro 31.5 27.0 - pg No No Oct 09 cyte 34.3 informa informa 2017 mean tion in tion in 6:10 PM corpusc source source ular data data hemoglo bin [Entiti c mass] by Automat ed count Erythro 34.0 32.1 - gm/dL No No Oct 09 cyte 35.3 informa informa 2017 mean tion in tion in 6:10 PM corpusc source source ular data data hemoglo bin concent ration [Mass/v olume] by Automat ed count Erythro 11.9 11.5 - % No No Oct 09 cyte 15.0 informa informa 2017 distrib tion in tion in 6:10 PM ution source source width data data [Ratio] by Automat ed count Platele 319 144 - x10(3)/ No No Oct 09 ts 423 mcL informa informa 2016 [#/volu tion in tion in 6:10 PM me] in source source Blood data data by Automat ed count MPV 7.9 6.8 - fL No No Oct 09 10.8 informa informa 2017 tion in tion in 6:10 PM source source data data ABSC IgG Observa Value Referen Units Interpr Notes Date tion ce etation Range ABSC Negativ No No No No Jun 15 IgG Int e informa informa informa informa 2016 tion in tion in tion in tion in 5:43 PM source source source source data data data data ABORh Observa Value Referen Units Interpr Notes Date tion ce etation Range ABORh A POS No No No No Jun 15 Int informa informa informa informa 2016 tion in tion in tion in tion in 5:43 PM source source source source data data data data Hemogram Observa Value Referen Units Interpr Notes Date tion ce etation Range LEUKOCY 12.9 4.0 - x10(3)/ High No Jun 15 JORGE ALBERTO 11.0 mcL informa 2016 tion in 5:02 PM source data Erythro 3.95 3.80 - x10(6)/ No No Jun 4 cytes 5.10 mcL informa informa 2016 [#/volu tion in tion in 5:02 PM me] in source source Blood data data by Automat ed count Hemoglo 12.4 12.0 - gm/dL No No Jun 4 bin 15.6 informa informa 2016 [Mass/v tion in tion in 5:02 PM olume] source source in data data Blood Hematoc 36.0 35.7 - % No No Jun 15 rit 45.9 informa informa 2016 [Volume tion in tion in 5:02 PM source source Fractio data data n] of Blood by Automat ed count Erythro 91.1 82.5 - fL No No Jun 15 cyte 99.8 informa informa 2016 mean tion in tion in 5:02 PM corpusc source source ular data data volume [Entiti c volume] by Automat ed count Erythro 31.4 27.0 - pg No No Jun 15 cyte 34.3 informa informa 2016 mean tion in tion in 5:02 PM corpusc source source ular data data hemoglo bin [Entiti c mass] by Automat ed count Erythro 34.4 32.1 - gm/dL No No Jun 15 cyte 35.3 informa informa 2016 mean tion in tion in 5:02 PM corpusc source source ular data data hemoglo bin concent ration [Mass/v olume] by Automat ed count Erythro 12.2 11.5 - % No No Jun 15 cyte 15.0 informa informa 2016 distrib tion in tion in 5:02 PM ution source source width data data [Ratio] by Automat ed count Platele 248 144 - x10(3)/ No No Jun 4 ts 423 mcL informa informa 2016 [#/volu tion in tion in 5:02 PM me] in source source Blood data data by Automat ed count MPV 7.8 6.8 - fL No No Jun 4 10.8 informa informa 2016 tion in tion in 5:02 PM source source data data Gp B Strep DNA Observa Value Referen Units Interpr Notes Date tion ce etation Range Strep B Negativ No No No No Oct 14 DNA e informa informa informa informa 2016 tion in tion in tion in tion in 11:29 source source source source AM data data data data Strep B TEST No No No No May 25 Interp INFORMA informa informa informa informa 2016 TION: tion in tion in tion in tion in 11:29 This source source source source AM qualita data data data data tive assay utilize s molecul ar amplifi cation to detect a portion of the Strepto coccus agalact iae genome and is intende d for a screen of antepar alejandro women in 35-37 weeks gestati on. This assay utilize s the [employer] aniya by [employer] and its perform ance has been verifie d by [facility] or[facility]. A negativ e result does not rule out the presenc e the Group B Strep in concent rations below the limit of detecti on for the assay. Chlamyd/GC TMA Observa Value Referen Units Interpr Notes Date tion ce etation Range Chlamyd Negativ No No No No May 24 ia e informa informa informa informa 2016 trachom tion in tion in tion in tion in 10:45 atis source source source source AM data data data data Neisser Negativ No No No Testing May 24 ia e informa informa informa 2016 gonorrh tion in tion in tion in methodo 10:45 oeae source source source logy is AM data data data transcr iption mediate d amplifi cation (TMA) using the Aptima Combo 2 assay from [employer] be.\\.br \\A negativ e result does not complet freida rule out a Chlamyd ia trachom atis or Neisser ia gonorrh oeae infecti on due to potenti al inhibit ors or levels present below the limit of detecti on by this assay. Results are depende nt on proper collect ion and transpo rt of specime n. This test is indicat ed for medical purpose s only and should not be used for legal or forensi c purpose s.\\.br\\ \\.br\\Th e perform ance charact eristic s of this test were validat ed by [facility] are laborat ory. This assay is FDA cleared to test the followi ng specime ns: clinici an-sameer ected endocer vical, vaginal and male urethra l swab specime ns, patient collect ed vaginal specime ns within a clinic setting , Thin Prep Specime ns in Preserv Cyt Solutio n, and first-s tream, unprese rved male urine specime ns. Testing on female urine is not FDA approve d by this methodo logy, but has been develop ed and validat ed by the [facility] are laborat ory. Detaile d methodo logy is availab le upon request . POC UA Observa Value Referen Units Interpr Notes Date tion ce etation Range UA Tasha No No No No Sep 14 Color informa informa informa informa 2016 POC tion in tion in tion in tion in 8:51 AM source source source source data data data data UA Clear Clear No No No Sep 14 Appear informa informa informa 2016 POC tion in tion in tion in 8:51 AM source source source data data data UA Gluc 100 Negativ No Abnorma No Sep 14 POC mg/dl e informa l informa 2016 tion in tion in 8:51 AM source source data data UA Negativ Negativ No No No Sep 14 Ketones e e informa informa informa 2016 POC tion in tion in tion in 8:51 AM source source source data data data UA Negativ Negativ No No No Sep 14 Blood e e informa informa informa 2016 POC tion in tion in tion in 8:51 AM source source source data data data UA pH 6.0 5.0 - No No No Sep 14 POC 8.0 informa informa informa 2016 tion in tion in tion in 8:51 AM source source source data data data UA Negativ Negativ No No No Sep 14 Protein e e informa informa informa 2016 POC tion in tion in tion in 8:51 AM source source source data data data UA 0.2 <=1 No No No Sep 14 Urobili mg/dl mg/dl informa informa informa 2016 nogen tion in tion in tion in 8:51 AM POC source source source data data data UA Negativ Negativ No No No Sep 14 Nitrite e e informa informa informa 2016 POC tion in tion in tion in 8:51 AM source source source data data data UA Leuk Negativ Negativ No No No Apr 25 Est e e informa informa informa 2016 POC tion in tion in tion in 8:51 AM source source source data data data UA SG 1.025 1.001 - No No No Apr 25 POC 1.035 informa informa informa 2016 tion in tion in tion in 8:51 AM source source source data data data Gluc 3Hr Observa Value Referen Units Interpr Notes ce etation Range Gluc 3 64 No mg/dL No Referen Mar 30 Hour informa informa ce 2015 tion in tion in Range:\\ 5:42 PM source source .br\\\\.b data data r\\ Pregnan t (IADPSG /ADA)\\. br\\100- g load < 140 mg/dL Gluc 2Hr Observa Value Referen Units Interpr Notes etation Range Gluc 2 129 No mg/dL No Referen Mar 30 Hour informa informa ce 2015 tion in tion in Range:\\ 4:57 PM source source .br\\\\.b data data r\\ Pregnan t (IADPSG /ADA)\\. br\\< 155 mg/dL\\. br\\\\.br \\Non-pr egnant\\ .br\\ < 140 mg/dL Normal\\ .br\\140 - 199 mg/dL Impaire d Glucose Toleran ce\\.br\\ >= 200 mg/dL Suggest mitchell of Diabete s Gluc 1Hr Observa Value Referen Units Interpr Notes ce etation Range Gluc 1 176 No mg/dL No Referen Mar 30 Hour informa informa ce 2015 tion in tion in Range:\\ 12:50 source source .br\\\\.b PM data data r\\Pregn ant (IADPSG /ADA)\\. br\\ < 180 mg/dL\\. br\\\\.br \\Non-pr egnant\\ .br\\ N/A Gluc Base Observa Value Referen Units Interpr Notes Date ce etation Range Gluc 76 74 - mg/dL No Referen Mar 30 Baselin 100 informa ce 2015 e tion in Range:\\ 12:49 source .br\\\\.b PM data r\\Pregn ant (IADPSG /ADA)\\. br\\ < 92 mg/dL\\. br\\\\.br \\Non-pr egnant\\ .br\\ < 100 mg/dL Normal\\ .br\\110 - 125 mg/dL Impaire d Fasting Glucose \\.br\\ >= 126 mg/dL Suggest mitchell of Diabete s Preg Scrn Observa Value Referen Units Interpr Notes Date tion ce etation Range Preg 138 No mg/dL No No Mar 10 Screen informa informa informa 2016 tion in tion in tion in 8:36 AM source source source data data data Auto Diff Observa Value Referen Units Interpr Notes Date tion ce etation Range Neutrop 81.2 No % No No Mar 10 hils informa informa informa 2015 [#/volu tion in tion in tion in 8:12 AM me] in source source source Blood data data data by Automat ed count Lymphoc 11.9 No % No No Mar 10 ytes informa informa informa 2015 [#/volu tion in tion in tion in 8:12 AM me] in source source source Blood data data data by Automat ed count Monocyt 5.0 No % No No Mar 21 es informa informa informa 2015 [#/volu tion in tion in tion in 8:12 AM me] in source source source Blood data data data by Automat ed count Eos 1.5 No % No No Mar 10 Percent informa informa informa 2016 tion in tion in tion in 8:12 AM source source source data data data Baso 0.4 No % No No Mar 10 Percent informa informa informa 2016 tion in tion in tion in 8:12 AM source source source data data data Neut# 8.7 1.8 - x10(3)/ High No Mar 10 7.7 mcL informa 2016 tion in 8:12 AM source data Lymph# 1.3 0.6 - x10(3)/ No No Mar 10 4.8 mcL informa informa 2016 tion in tion in 8:12 AM source source data data Wirt# 0.5 0.0 - x10(3)/ No No Mar 10 1.3 mcL informa informa 2016 tion in tion in 8:12 AM source source data data Eos# 0.2 0.0 - x10(3)/ No No Mar 10 0.5 [facility] informa informa 2016 tion in tion in 8:12 AM source source data data Baso# 0.0 0.0 - x10(3)/ No No Mar 10 0.2 [facility] informa informa 2016 tion in tion in 8:12 AM source source data data CBC Observa Value Referen Units Interpr Notes Date tion ce etation Range LEUKOCY 10.7 4.0 - x10(3)/ No No Mar 10 JORGE ALBERTO 11.0 [facility] informa informa 2016 tion in tion in 8:12 AM source source data data Erythro 3.87 3.80 - x10(6)/ No No Mar 21 cytes 5.10 [facility] informa informa 2016 [#/volu tion in tion in 8:12 AM me] in source source Blood data data by Automat ed count Hemoglo 12.5 12.0 - gm/dL No Mar 21 bin 15.6 informa informa 2016 [Mass/v tion in tion in 8:12 AM olume] source source in data data Blood Hematoc 36.3 35.7 - % No No Mar 21 rit 45.9 informa informa 2016 [Volume tion in tion in 8:12 AM source source Fractio data data n] of Blood by Automat ed count Erythro 93.7 82.5 - fL No No Mar 21 cyte 99.8 informa informa 2016 mean tion in tion in 8:12 AM corpusc source source ular data data volume [Entiti c volume] by Automat ed count Erythro 32.3 27.0 - pg No No Mar 21 cyte 34.3 informa informa 2016 mean tion in tion in 8:12 AM corpusc source source ular data data hemoglo bin [Entiti c mass] by Automat ed count Erythro 34.4 32.1 - gm/dL No No Mar 21 cyte 35.3 informa informa 2016 mean tion in tion in 8:12 AM corpusc source source ular data data hemoglo bin concent ration [Mass/v olume] by Automat ed count Erythro 12.1 11.5 - % No No Mar 21 cyte 15.0 informa informa 2016 distrib tion in tion in 8:12 AM ution source source width data data [Ratio] by Automat ed count Platele 260 144 - x10(3)/ No No Mar 21 ts 423 mcL informa informa 2016 [#/volu tion in tion in 8:12 AM me] in source source Blood data data by Automat ed count MPV 6.8 6.8 - fL No No Mar 21 10.8 informa informa 2016 tion in tion in 8:12 AM source source data data PN US Cervical Length w follow up Observa Value Referen Units Interpr Notes Date tion ce etation Range Obstetr No No No No Mar 21 ic informa informa informa informa 2016 Ultraso tion in tion in tion in tion in und source source source source Report\\ data data data data .br\\Det david Survey\\ .br\\Ref erral from:\\. br\\THERESE TIMOTHY LITTLEJOHN , CNM [facility] are\\.br \\[facility] [address]\\. br\\[address] [place] [address]\\. br\\[place] [address] Accounting Supervisor [phone]\\.br\\P cecilio: [phone] Reading Room \\.br\\F ax [phone] 6\\.br\\- ------- ------- ------- ------- ------- ------- ------- ------- ------- ------\\ .br\\PAT IENT INFORMA TION:\\. br\\Name : SHERIDAN Hawkins MR#: [id number] 4\\.br\\A ge: 26 y/o Exam Date: 03/21/20 16\\.br\\ : [birth year] Visit #: 4\\.br\\L MP: 09/10/19 16 Locatio n: [facility]\\.br\\ [facility] are-- [facility] shruthi\\.br\\# Fetuses : 1\\.br\\I NDICATI ONS: Low lying plac w/o hemorr, 2nd trim ICD10: O44.02, f/u\\.br \\questi onable genetal ia\\.br\\ ------- ------- ------- ------- ------- ------- ------- ------- ------- ------- \\.br\\PH YSICAL EXAM:\\. br\\Heig ht: 5' 4"\\.br\\ Pre-Pre gnancy Weight: 144 lbs.\\.b r\\Pre-P regnanc y BMI: 24.7 (Normal )\\.br\\C urrent Weight: 159 lbs.\\.b r\\MEDIC AL HISTORY :\\.br\\O ther/Co mments: Medicat ions: prenata l vitamin s, DHA\\.br \\------ ------- ------- ------- ------- ------- ------- ------- ------- ------- -\\.br\\D ATING:\\ .br\\Ass igned GA\\.br\\ GA by LMP GA by US (LMP) FREEDOM\\.br \\27 4/7 wks 26 5/7 wks 27 4/7 wks 06/16/16 \\.br\\BI OMETRY: \\.br\\BP D: 64.5 mm 26 0/7 wks HC: 246.1 mm 26 5/7 wks\\.br \\(9%) (9%)\\.b r\\Femur : 51.5 mm 27 4/7 wks AC: 233.9 mm 27 5/7 wks\\.br \\(40%) (46%)\\. br\\HC/A C: 1.05 (0.99-1 .23)\\.b r\\EFW: 1085 gms 2 lbs 6 oz\\.br\\ (50%)\\. br\\Lat Ventric les: 3.6 mm Cerebel lum: 30.1 mm (\\.br\\C isterna Magna: 5.1 mm Heart Rate: 157 bpm\\.br \\FL/AC: 0.22 HL/BPD: 0.71\\.b r\\FL/BP D: 0.79 Humerus : 46.4 mm 2\\.br\\ / (40%)\\. br\\PRES ENTATIO N/CORD/ PLACENT A/FLUID /CERVIX :\\.br\\P resenta tion: Cephali c\\.br\\U mbilica l Cord: 3 Vessel Cord. Normal inserti on into the placent a.\\.br\\ Placent a: Posteri or. There Is No Evidenc e Of Placent a\\.br\\P revia. Grade 1\\.br\\A mniotic Fluid: Maximum Vertica l Pocket = 4.9 cm. Subject mitchell AF\\.br\\ Volume: Normal. (ESTEFANY=13 .5 cm)\\.br \\Cervix : Overall Length: 43mm, Normal\\ .br\\FET AL ANATOMI DAIANA SURVEY: \\.br\\No rmal\\.b r\\----- -\\.br\\C alvariu m Intracr anial Anatomy \\.br\\La teral Ventric les Cerebel lum\\.br \\Choroi d Plexus Cistern a Magna\\. br\\Midl ine Falx Cavum Septum Pelluci dum\\.br \\Profil e Orbits\\ .br\\Fac e Nose\\.b r\\Lips Cervica l Spine\\. br\\Thor acic Spine Lumbar Spine\\. br\\Sacr um Four Chamber View\\.b r\\RVOT LVOT\\.b r\\Three Vessel View Aortic Arch\\.b r\\Cardi ac [place] Cardiac Positio n\\.br\\F etal Heart Rate Lungs\\. br\\Diap hragm IVC\\.br \\SVC Stomach \\.br\\Ki dney - Left Kidney - Right\\. br\\Blad candy Bowel\\. br\\Cara dot Upper Extremi ties\\.b r\\Lower Extremi ties\\.b r\\Subop timal\\. br\\---- ------\\ .br\\Marty tral Wall\\.b r\\Not Visuali zed\\.br \\------ ------- -\\.br\\D uctal Arch\\.b r\\Abnor mal\\.br \\------ --\\.br\\ None identif ied\\.br \\RELAY TESTER HELPER FINDING S:\\.br\\ Uterus: Normal\\ .br\\Ova my: Left: Normal - 36 x 30 x 13 mm.\\.br \\Right: Normal - 26 x 23 x 20 mm.\\.br \\Cul-De -Sac: No free fluid noted in the Cul-de- sac.\\.b r\\ADNEX AL FINDING S:\\.br\\ Adnexal mass was not noted.\\ .br\\EFW Summary Table\\. br\\Exam Date Fetus # EFW Percent ile\\.br \\------ --- ------- ---- ------- ---\\.br \\ 6 1 1085 50 %\\.br\\ 1 697 45 %\\.br\\ 1 357 %\\.br\\A MNIOTIC FLUID VOLUME: \\.br\\NO RMAL Total ESTEFANY: 13.5 cm. Subject mitchell AF Volume: \\.br\\No rmal. 40th percent ile. Maximum Vertica l\\.br\\P ocket: 4.9 cm\\.br\\ CERVIX: Visuali zed\\.br \\Overal l Length: 43 mm\\.br\\ Cervica l Evaluat ion: Yes\\.br \\Cervic al Approac h: Transva ginal\\. br\\Fund al Pressur e: No\\.br\\ Dynamic Changes : None\\.b r\\Cercl age: No\\.br\\ Comment s: transva ginal perform ed to evaluat e low\\.br \\lying placent a\\.br\\- ------- ------- ------- ------- ------- ------- ------- ------- ------- ------\\ .br\\COM MENTS:\\ .br\\Vis ualizat ion of anatomy is limited by subopti mal \\. br\\posi tion. The biometr ic measure ments are consist ent with\\.b r\\menst rual dates. The amnioti c fluid volume is normal. No gross\\. br\\feta l anatomi c abnorma lities are identif ied.\\.b r\\The fetus is a female. \\.br\\Tr ansvagi nal scannin g is perform ed for better visuali zation of the\\.br \\placen ta. The placent a is posteri or locatio n and is a grade 1.\\.br\\ There is no evidenc e of a placent a previa. The placent a is NOT\\.br \\low-ly ing with the inferio r margin of the placent a is lying\\. br\\appr oximate ly 2.9 cm from the interna l cervica l os. There is no\\.br\\ evidenc e of vascula r flow/po oling demonst rated in this area by\\.br\\ either 2D imaging or color doppler flow.\\. br\\Than k you for this referra l.\\.br\\ Electro nically signed by BERENICE LEDEZMA\\. Parker santacruz on 03/21/20 16 at 9:21 am\\.br\\ ------- ------- ------- ------- ------\\ .br\\BERENICE LEDEZMA M.D.\\.b r\\----- ------- ------- ------- ------- Yessi.br\\So nograph er: Mamta Garcia RDMS Chlamyd/GC TMA Observa Value Referen Units Interpr Notes Date tion ce etation Range Chlamyd Negativ No No No No Mar 15 ia e informa informa informa informa 2016 trachom tion in tion in tion in tion in 1:36 PM atis source source source source data data data data Neisser Negativ No No No Testing Mar 15 ia e informa informa informa 2016 gonorrh tion in tion in tion in methodo 1:36 PM oeae source source source logy is data data data transcr iption mediate d amplifi cation (TMA) using the Aptima Combo 2 assay from [employer] /[employer] be.\\.br \\A negativ e result does not complet freida rule out a Chlamyd ia trachom atis or Neisser ia gonorrh oeae infecti on due to potenti al inhibit ors or levels present below the limit of detecti on by this assay. Results are depende nt on proper collect ion and transpo rt of specime n. This test is indicat ed for medical purpose s only and should not be used for legal or forensi c purpose s.\\.br\\ \\.br\\Th e perform ance charact eristic s of this test were validat ed by [facility] are laborat ory. This assay is FDA cleared to test the followi ng specime ns: clinici an-sameer ected endocer vical, vaginal and male urethra l swab specime ns, patient collect ed vaginal specime ns within a clinic setting , Thin Prep Specime ns in Preserv Cyt Solutio n, and first-s tream, unprese rved male urine specime ns. Testing on female urine is not FDA approve d by this methodo logy, but has been develop ed and validat ed by the [facility] are laborat ory. Detaile d methodo logy is availab le upon request . PN US OB FOLLOW UP TRANSABDOMINAL APPROACH EACH GESTATION Observa Value Referen Units Interpr Notes Date tion ce etation Range Obstetr No No No No Feb 20 ic informa informa informa informa 2016 Ultraso tion in tion in tion in tion in und source source source source Report\\ data data data data .br\\Det david Survey\\ .br\\Ref erral from:\\. br\\RACQUEL JOHNSON MD @ [facility] are\\.br \\[facility] [place] [address]\\. br\\[address] [place] [address]\\. br\\[place] [address] Accounting Supervisor [phone] 5\\.br\\P cecilio: Reading Room \\.br\\F ax: [phone] Fax \\.br\\- ------- ------- ------- ------- ------- ------- ------- ------- ------- ------\\ .br\\PAT IENT INFORMA TION:\\. br\\Name : SHERIDAN [place] MR#: [id number] 4\\.br\\A ge: 26 y/o Exam Date: 02/29/20 16\\.br\\ : 01/31/19 89 Visit #: 3\\.br\\L MP: 09/10/19 16 Locatio n: [facility]\\.br\\ [facility] are-- [place]\\.br\\# Fetuses : 1\\.br\\I NDICATI ONS: Follow- up and complet e the anatomi daiana survey, Low\\.br \\lying plac w/o hemorr, 2nd trim ICD10: O44.02\\ .br\\--- ------- ------- ------- ------- ------- ------- ------- ------- ------- ----\\.b r\\PHYSI DAIANA EXAM:\\. br\\Heig ht: 5' 4"\\.br\\ Pre-Pre gnancy Weight: 144 lbs.\\.b r\\Pre-P regnanc y BMI: 24.7 (Normal )\\.br\\C urrent Weight: 148 lbs.\\.b r\\MEDIC AL HISTORY :\\.br\\O ther/Co mments: Medicat ions: prenata l vitamin s, DHA\\.br \\------ ------- ------- ------- ------- ------- ------- ------- ------- ------- -\\.br\\D ATING:\\ .br\\Ass igned GA\\.br\\ GA by LMP GA by US (LMP) F[facility]OM\\.br \\24 4/7 wks 23 5/7 wks 24 4/7 wks 06/16/16 \\.br\\BI OMETRY: \\.br\\BP D: 55.9 mm 23 0/7 wks HC: 221.2 mm 24 1/7 wks\\.br \\(12%) (22%)\\. br\\Femu r: 44.0 mm 24 3/7 wks AC: 196.4 mm 24 2/7 wks\\.br \\(39%) (33%)\\. br\\HC/A C: 1.13 (0.99-1 .23)\\.b r\\EFW: 697 gms 1 lbs 9 oz (45%)\\. br\\Lat Ventric les: 5.2 mm Cerebel lum: 25.2 mm (\\.br\\C isterna Magna: 5.7 mm Nasal Bone: Present \\.br\\Fe melissa Heart Rate: 135 bpm FL/AC: 0.22\\.b r\\HL/BP D: 0.71 FL/BPD: 0.78\\.b r\\Humer us: 40.0 mm 24\\.br\\ 09/18 (40%)\\. br\\PRES ENTATIO N/CORD/ PLACENT A/FLUID /CERVIX :\\.br\\P resenta tion: Breech\\ .br\\Umb ilical Cord: 3 Vessel Cord. Normal inserti on into the placent a.\\.br\\ Placent a: Posteri or, Low Lying Positio n, Grade 1\\.br\\A mniotic Fluid: Maximum Vertica l Pocket = 3.7 cm. Subject mitchell AF\\.br\\ Volume: Normal. \\.br\\Ce rvix: Normal\\ .br\\FET AL ANATOMI DAIANA SURVEY: \\.br\\No rmal\\.b r\\----- -\\.br\\C alvariu m Intracr anial Anatomy \\.br\\La teral Ventric les Cerebel lum\\.br \\Choroi d Plexus Cistern a Magna\\. br\\Midl ine Falx Cavum Septum Pelluci dum\\.br \\Profil e Orbits\\ .br\\Fac e Nose\\.b r\\Lips Cervica l Spine\\. br\\Thor acic Spine Lumbar Spine\\. br\\Sacr um Four Chamber View\\.b r\\RVOT LVOT\\.b r\\Three Vessel View Aortic Arch\\.b r\\Cardi ac [place] Cardiac Positio n\\.br\\F etal Heart Rate Diaphra gm\\.br\\ IVC SVC\\.br \\Ventra l Wall Stomach \\.br\\Ki dney - Left Kidney - Right\\. br\\Blad candy Humerus - Left\\.b r\\Hand - Left Hand - Right\\. br\\Fing ers - Left Femur - Left\\.b r\\Foot - Left Foot - Right\\. br\\Subo ptimal\\ .br\\--- ------- \\.br\\Du ctal Arch Genital ia\\.br\\ Abnorma l\\.br\\- ------- \\.br\\No ne identif ied\\.br \\EFW Summary Table\\. br\\Exam Date Fetus # EFW Percent ile\\.br \\------ --- ------- ---- ------- ---\\.br \\ 6 1 697 45 %\\.br\\ 1 357 %\\.br\\A MNIOTIC FLUID VOLUME: \\.br\\NO RMAL Subject mitchell AF Volume: Normal. Maximum Vertica l\\.br\\P ocket: 3.7 cm\\.br\\ CERVIX: Visuali zed\\.br \\------ ------- ------- ------- ------- ------- ------- ------- ------- ------- -\\.br\\C OMMENTS :\\.br\\V isualiz ation of anatomy is limited by subopti mal \\. br\\posi tion.\\. br\\The biometr ic measure ments are consist ent with menstru al\\.br\\ dates. The amnioti c fluid volume is normal. No gross \\. br\\marshal omic abnorma lities are identif ied. Recomme nd follow up placent a\\.br\\w ith transva ginal scannin g and re evaluat e genital ia at 28-32 weeks\\. br\\gest ation.\\ .br\\Dr. Salmeron scanned the patient and explain ed that we can not be\\.br\\ certain on the genital ia on today's exam as the fetus is breech and\\.br \\the foot is between the legs. The patient was previou sly told\\.b r\\the fetus was a girl. The patient was told to keep on her receipt s\\.br\\f or the gifts she has receive d and that we will look again in the\\.br \\third trimest er.\\.br \\Electr onicall y signed by LORELEI\\. br\\CHRISTIANO RED M.D. on 02/29/20 16 at\\.br\\ 3:10 pm\\.br\\ ------- ------- ------- ------- ------\\ .br\\JOEL SALMERON M.D.\\.b r\\----- ------- ------- ------- ------- ------- ---\\.br \\Sonogr apher: [facility] muniz, RN, RDMS PN US Cervical Length W > 14 week Observa Value Referen Units Interpr Notes Date tion ce etation Range Obstetr No No No No Jan 29 ic informa informa informa informa 2016 Ultraso tion in tion in tion in tion in und source source source source Report\\ data data data data .br\\Det david Survey\\ .br\\Ref erral from:\\. br\\KILEY LITTLEJOHN MD ([place]) [facility] are\\.br \\[facility] [address] [facility]\\. br\\[address] [place] [address]\\. br\\[place], Accounting Supervisor [phone]\\.br\\P cecilio: [phone] Reading Room [phone]\\.br\\F ax: Fax \\.br\\- ------- ------- ------- ------- ------- ------- ------- ------- ------- ------\\ .br\\PAT IENT INFORMA TION:\\. br\\Name : SHERIDAN Hawkins MR#: [id number]\\.br\\A ge: 25 y/o Exam Date: 01/30/20\\.br\\ : 01/31/19 89 Visit #: 2\\.br\\L MP: 09/10/19 Locatio n: [facility]\\.br\\ [facility] are-- [place]\\.br\\# Fetuses : 1\\.br\\I HARRIETICATI ON: anatomy survey ICD 10: Z36\\.br \\------ ------- ------- ------- ------- ------- ------- ------- ------- ------- -\\.br\\P HYSICAL EXAM:\\. br\\Heig ht: 5' 4"\\.br\\ Pre-Pre gnancy Weight: 144 lbs.\\.b r\\Pre-P regnanc y BMI: 24.7 (Normal )\\.br\\C urrent Weight: 149 lbs.\\.b r\\MEDIC AL HISTORY :\\.br\\O ther/Co mments: Medicat ions: prenata l vitamin s, DHA\\.br \\------ ------- ------- ------- ------- ------- ------- ------- ------- ------- -\\.br\\D ATING:\\ .br\\Ass igned GA\\.br\\ GA by LMP GA by US (LMP) FREEDOM\\.br \\20 2/7 wks 19 3/7 wks 20 2/7 wks 11/16 \\.br\\BI OMETRY: \\.br\\BP D: 43.1 mm 19 0/7 wks HC: 162.4 mm 19 0/7 wks\\.br \\(18%) (<3%)\\. br\\Femu r: 32.6 mm 20 1/7 wks AC: 150.7 mm 20 2/7 wks\\.br \\(37%) (41%)\\. br\\HC/A C: 1.08 (1.09 -1.39)\\ .br\\EFW : 357 gms 0 lbs 13 oz (%)\\.br \\Lat Ventric les: 4.4 mm Cerebel lum: 18.7 mm (\\.br\\C isterna Magna: 5.1 mm Nuchal Fold: 3.5 mm\\.br\\ Nasal Bone: Present Heart Rate: 139 bpm\\.br \\FL/AC: 0.22 HL/BPD: 0.67\\.b r\\FL/BP D: 0.75 Humerus : 29.2 mm 1\\.br\\7 (33%)\\. br\\PRES ENTATIO N/CORD/ PLACENT A/FLUID /CERVIX :\\.br\\P resenta tion: Breech\\ .br\\Umb ilical Cord: 3 Vessel Cord. Normal inserti on into the placent a.\\.br\\ Placent a: Posteri or, Low Lying Positio n, Grade 1\\.br\\A mniotic Fluid: Maximum Vertica l Pocket = 4.1 cm. Subject mitchell AF\\.br\\ Volume: Normal. \\.br\\Ce rvix: Normal\\ .br\\FET AL ANATOMI DAIANA SURVEY: \\.br\\No rmal\\.b r\\----- -\\.br\\C alvariu m Intracr anial Anatomy \\.br\\La teral Ventric les Cerebel lum\\.br \\Choroi d Plexus Cistern a Magna\\. br\\Midl ine Falx Cavum Septum Pelluci dum\\.br \\Neck Anatomy Nuchal Fold\\.b r\\Profi le Orbits\\ .br\\Fac e Nose\\.b r\\Lips Cervica l Spine\\. br\\Thor acic Spine Lumbar Spine\\. br\\Sacr um Four Chamber View\\.b r\\Aorti c Arch Cardiac [place]\\.b r\\Cardi ac Positio n Heart Rate\\.b r\\Diaph ragm IVC\\.br \\SVC Ductal Arch\\.b r\\Ventr al Wall Stomach \\.br\\Ki dney - Left Kidney - Right\\. br\\Blad candy Humerus - Left\\.b r\\Humer us - Right Forearm - Left\\.b r\\Forea rm - Right Femur - Left\\.b r\\Femur - Right Lower Leg - Left\\.b r\\Lower Leg - Right Foot - Left\\.b r\\Foot - Right\\. br\\Subo ptimal\\ .br\\--- ------- \\.br\\RV OT LVOT\\.b r\\Three Vessel View Genital ia\\.br\\ Hand - Left Hand - Right\\. br\\Abno rmal\\.b r\\----- ---\\.br \\None identif ied\\.br \\RELAY TESTER HELPER FINDING S:\\.br\\ Uterus: Normal\\ .br\\Ova my: Left: Normal - 21 x 15 x 18 mm.\\.br \\Right: Not Seen\\.b r\\ADNEX AL FINDING S:\\.br\\ Adnexal mass was not noted.\\ .br\\EFW Summary Table\\. br\\Exam Date Fetus # EFW Percent ile\\.br \\------ --- ------- ---- ------- ---\\.br \\ 6 1 357 %\\.br\\A MNIOTIC FLUID VOLUME: \\.br\\NO RMAL Subject mitchell AF Volume: Normal. Maximum Vertica l\\.br\\P ocket: 4.1 cm\\.br\\ CERVIX: Visuali zed\\.br \\------ ------- ------- ------- ------- ------- ------- ------- ------- ------- -\\.br\\C OMMENTS :\\.br\\V isualiz ation of anatomy is limited by subopti mal \\. br\\posi tion.\\. br\\The biometr ic measure ments are consist ent with menstru al\\.br\\ dates. The amnioti c fluid volume is normal. No gross \\. br\\marshal omic abnorma lities are identif ied.\\.b r\\Trans vaginal scannin g is perform ed for visuali zation of the\\.br \\placen ta. The placent a is low lying, measuri ng 1.4 cm from the\\.br \\clinical nursing intern al os.\\.br \\Visual ization of the cardiac anatomy is subopti mal.\\.b r\\Recom mend repeat ultraso und in 4 weeks to assess cardiac \\.br\\an atomy. Reasses s placent al locatio n at that time.\\. br\\Than k you for this referra l.\\.br\\ Electro nically signed by DOUGLAS Muniz\\.br\\S MD ASHLIE, PhD on 01/30/20 16 at\\.br\\ 10:47 pm\\.br\\ ------- ------- ------- ------- ------\\ .br\\DAISY MONIQUE MD, PhD\\.br \\------ ------- ------- ------- ------- ------- --\\.br\\ Sonogra pher: [facility] muniz, RN, RDMS hCG Quant Observa Value Referen Units Interpr Notes Date tion ce etation Range hCG 429389 No mIU/mL No No Apr 6 Quant informa informa informa 2016 tion in tion in tion in 2:03 PM source source source data data data PN US OB < 14 WEEKS SINGLE OR FIRST GESTATION Observa Value Referen Units Interpr Notes Date tion ce etation Range Obstetr No No No No Apr 6 ic informa informa informa informa 2016 Ultraso tion in tion in tion in tion in und source source source source Report\\ data data data data .br\\Ear ly Limited Survey\\ .br\\Ref erral from:\\. br\\KILEY LITTLEJOHN MD ([place]) [facility] \\[facility] [address]\\. br\\[address] [place] [address]\\. br\\[place], [place] Accounting Supervisor [phone]\\.br\\P cecilio: [phone] Reading Room \\.br\\F ax: Fax \\.br\\- ------- ------- ------- ------- ------- ------- ------- ------- ------- ------\\ .br\\PAT IENT INFORMA TION:\\. br\\Name : SHERIDAN Hawkins MR#: [id number]\\.br\\A ge: 25 y/o Exam Date: 6\\.br\\D OB: 01/31/19 89 Visit #: 1\\.br\\L MP: 09/10/19 16 Locatio n: [facility]\\.br\\ [facility] are-- [facility] d\\.br\\# Fetuses : 1\\.br\\I NDICATI ONS: Threate kathryn abortio n ICD10: O20.0, luis a g and gaby g\\.br\\- ------- ------- ------- ------- ------- ------- ------- ------- ------- ------\\ .br\\PHY SICAL EXAM:\\. br\\Alexig ht: 5' 4"\\.br\\ Pre-Pre gnancy Weight: 144 lbs.\\.b r\\Pre-P regnanc y BMI: 24.7 (Normal )\\.br\\C urrent Weight: 145 lbs.\\.b r\\MEDIC AL HISTORY :\\.br\\O ther/Co mments: Medicat ions: prenata l vitamin s, DHA\\.br \\------ ------- ------- ------- ------- ------- ------- ------- ------- ------- -\\.br\\A PPROACH : Transab dominal .\\.br\\- ------- ------- ------- ------- ------- ------- ------- ------- ------- ------\\ .br\\MYKE ING:\\.b r\\Assig kathryn GA\\.br\\ GA by LMP GA by Ultraso und (LMP) FREEDOM\\.br \\11/16 wks 9 11/16 wks 9 11/16 wks 06/16/16 \\.br\\EC TOPIC PREGNAN CY:\\.br \\Locati on:\\.br \\EGA:\\. br\\Uter ine Changes :\\.br\\V iabilit y:\\.br\\ GESTATI ON:\\.br \\\\ .br\\Sac [place]-R ump Heart\\. br\\Sandra urement Yolk Sac Length Rate\\.b r\\----- ------- -- ------- ------- ------- ------- - ------- \\.br\\Pr esent Not visuali zed 27.5mm (11/16 188 bpm\\.br \\wks)\\. br\\Gest ational Sac: Seen. Normal positio n within uterus. \\.br\\PL ACENTA/ UMBILIC AL CORD:\\. br\\Plac enta is Posteri or\\.br\\ UTERUS: \\.br\\No rmal\\.b r\\OVARI ES:\\.br \\Right: Normal - 23 x 24 x 18 Left: Normal - 28 x 25 x 13\\.br\\ mm. mm.\\.br \\ADNEXA L FINDING S:\\.br\\ Adnexal mass was not noted.\\ .br\\CUL -DE-SAC :\\.br\\N o free fluid noted in the Cul-de- sac.\\.b r\\----- ------- ------- ------- ------- ------- ------- ------- ------- ------- --\\.br\\ COMMENT S:\\.br\\ A singlet on intraut erine pregnan cy consist ent with menstru al dates\\. br\\is identif ied. cardiac activit y is present .\\.br\\E lectron icayazmin signed by BERENICE LEDEZMA\\. brParker Dickson on 6 at 4:56 pm\\.br\\ ------- ------- ------- ------- ------\\ .br\\BERENICE LEDEZMA M.D.\\.b r\\----- ------- ------- ------- ------- \\.br\\So nograph er: Mamta Garcia, RD Chlamyd/GC TMA Observa Value Referen Units Interpr Notes Date tion ce etation Range Chlamyd Negativ No No No No Apr 5 ia e informa informa informa informa 2016 trachom tion in tion in tion in tion in 3:33 PM atis source source source source data data data data Neisser Negativ No No No Testing Apr 5 ia e informa informa informa 2016 gonorrh tion in tion in tion in methodo 3:33 PM oeae source source source logy is data data data transcr iption mediate d amplifi cation (TMA) using the Aptima Combo 2 assay from [employer] /[employer] be.\\.br \\A negativ e result does not complet freida rule out a Chlamyd ia trachom atis or Neisser ia gonorrh oeae infecti on due to potenti al inhibit ors or levels present below the limit of detecti on by this assay. Results are depende nt on proper collect ion and transpo rt of specime n. This test is indicat ed for medical purpose s only and should not be used for legal or forensi c purpose s.\\.br\\ \\.br\\ e perform ance charact eristic s of this test were validat ed by [facility] are laborat ory. This assay is FDA cleared to test the followi ng specime ns: clinici an-sameer ected endocer vical, vaginal and male urethra l swab specime ns, patient collect ed vaginal specime ns within a clinic setting , Thin Prep Specime ns in Preserv Cyt Solutio n, and first-s tream, unprese rved male urine specime ns. Testing on female urine is not FDA approve d by this methodo logy, but has been develop ed and validat ed by the [facility] are laborat ory. Detaile d methodo logy is availab le upon request . Hep C Ab Observa Value Referen Units Interpr Notes Date tion ce etation Range Hep C Negativ Negativ No No No Oct 27 Ab e e informa informa informa 2015 tion in tion in tion in 10:21 source source source AM data data data Hep Bs Ag Observa Value Referen Units Interpr Notes Date tion ce etation Range Hepatit Negativ Negativ No No No Oct 27 is B e e informa informa informa 2015 virus tion in tion in tion in 10:20 surface source source source AM Ag data data data [Presen ce] in Serum by Immunoa ssay Rubella G Observa Value Referen Units Interpr Notes Date tion ce etation Range Rubella 1.160 No Index_V No < 0.90 Oct 27 IgG informa alue informa - 2016 tion in tion in Negativ 8:26 AM source source e\\.br\\N data data o signifi cant level of detecta ble rubella IgG Antibod y\\.br\\( Presume d Non-Imm une)\\.b r\\\\.br\\ 0.90 to 0.99 - Equivoc al\\.br\\ Repeat testing in 10-14 days is recomme nded\\.b r\\\\.br\\ > or = 1.00 - Positiv e\\.br\\P revious exposur e or vaccina tion (Immune )\\.br\\\\ .br\\Not e: The magnitu de of the measure d result is not indicat mitchell of the amount of antibod y present . ABSC IgG Observa Value Referen Units Interpr Notes Date tion ce etation Range ABSC Negativ No No No No Oct 26 IgG Int e informa informa informa informa 2016 tion in tion in tion in tion in 10:21 source source source source PM data data data data ABORh Observa Value Referen Units Interpr Notes Date tion ce etation Range ABORh A POS No No No No Oct 17 Int informa informa informa informa 2016 tion in tion in tion in tion in 10:21 source source source source PM data data data data Auto Diff Observa Value Referen Units Interpr Notes Date tion ce etation Range Neutrop 67.6 No % No No Oct 26 hils informa informa informa 2016 [#/volu tion in tion in tion in 9:23 PM me] in source source source Blood data data data by Automat ed count Lymphoc 21.6 No % No No Oct 26 ytes informa informa informa 2016 [#/volu tion in tion in tion in 9:23 PM me] in source source source Blood data data data by Automat ed count Monocyt 8.0 No % No No Oct 26 es informa informa informa 2016 [#/volu tion in tion in tion in 9:23 PM me] in source source source Blood data data data by Automat ed count Eos 1.5 No % No No Oct 26 Percent informa informa informa 2016 tion in tion in tion in 9:23 PM source source source data data data Baso 1.3 No % No No Oct 26 Percent informa informa informa 2016 tion in tion in tion in 9:23 PM source source source data data data Neut# 5.5 1.8 - x10(3)/ No No Oct 26 7.7 mcL informa informa 2016 tion in tion in 9:23 PM source source data data Lymph# 1.8 0.6 - x10(3)/ No No Oct 17 4.8 mcL informa informa 2016 tion in tion in 9:23 PM source source data data Wirt# 0.7 0.0 - x10(3)/ No No Oct 17 1.3 mcL informa informa 2016 tion in tion in 9:23 PM source source data data Eos# 0.1 0.0 - x10(3)/ No No Oct 17 0.5 mcL informa informa 2016 tion in tion in 9:23 PM source source data data Baso# 0.1 0.0 - x10(3)/ No No Oct 17 0.2 mcL informa informa 2016 tion in tion in 9:23 PM source source data data CBC Observa Value Referen Units Interpr Notes Date tion ce etation Range LEUKOCY 8.2 4.0 - x10(3)/ No No Oct 17 JORGE ALBERTO 11.0 mcL informa informa 2016 tion in tion in 9:23 PM source source data data Erythro 4.17 3.80 - x10(6)/ No No Oct 26 cytes 5.10 mcL informa informa 2016 [#/volu tion in tion in 9:23 PM me] in source source Blood data data by Automat ed count Hemoglo 13.2 12.0 - gm/dL No No Oct 26 bin 15.6 informa informa 2016 [Mass/v tion in tion in 9:23 PM olume] source source in data data Blood Hematoc 38.9 35.7 - % No No Oct 26 rit 45.9 informa informa 2016 [Volume tion in tion in 9:23 PM source source Fractio data data n] of Blood by Automat ed count Erythro 93.3 82.5 - fL No No Oct 26 cyte 99.8 informa informa 2016 mean tion in tion in 9:23 PM corpusc source source ular data data volume [Entiti c volume] by Automat ed count Erythro 31.6 27.0 - pg No No Oct 26 cyte 34.3 informa informa 2016 mean tion in tion in 9:23 PM corpusc source source ular data data hemoglo bin [Entiti c mass] by Automat ed count Erythro 33.9 32.1 - gm/dL No No Oct 26 cyte 35.3 informa informa 2016 mean tion in tion in 9:23 PM corpusc source source ular data data hemoglo bin concent ration [Mass/v olume] by Automat ed count Erythro 11.7 11.5 - % No No Oct 26 cyte 15.0 informa informa 2016 distrib tion in tion in 9:23 PM ution source source width data data [Ratio] by Automat ed count Platele 334 144 - x10(3)/ No No Oct 26 ts 423 mcL informa informa 2016 [#/volu tion in tion in 9:23 PM me] in source source Blood data data by Automat ed count MPV 8.0 6.8 - fL No No Oct 26 10.8 informa informa 2016 tion in tion in 9:23 PM source source data data DOA Reflex Observa Value Referen Units Interpr Notes Date tion ce etation Range Cannabi Absent 50 No No No Oct 11 noid ng/mL informa informa informa 2016 Metabol tion in tion in tion in 8:06 PM ite source source source data data data Benzodi Absent 200 No No No Oct 11 azepine ng/mL informa informa informa 2016 s tion in tion in tion in 8:06 PM source source source data data data Cocaine Absent 150 No No No Mar 11 ng/mL informa informa informa 2016 Metabol tion in tion in tion in 8:06 PM ite source source source data data data Opiate Absent 300 No No No Oct 11 300 ng/mL informa informa informa 2016 tion in tion in tion in 8:06 PM source source source data data data Barbitu Absent 200 No No No Oct 11 rates ng/mL informa informa informa 2016 tion in tion in tion in 8:06 PM source source source data data data Ampheta Absent 500 No No No Oct 11 mines ng/mL informa informa informa 2016 tion in tion in tion in 8:06 PM source source source data data data Phencyc Absent 25 No No No Oct 11 lidine ng/mL informa informa informa 2016 tion in tion in tion in 8:06 PM source source source data data data Methado Absent 300 No No No Oct 20 ne and ng/mL informa informa informa 2016 Metabol tion in tion in tion in 8:06 PM ite source source source data data data Oxycodo Absent 100 No No No Oct 20 ne Lvl ng/mL informa informa informa 2016 tion in tion in tion in 8:06 PM source source source data data data 6 AM Absent 10 No No No Oct 20 (Heroin ng/mL informa informa informa 2016 ) tion in tion in tion in 8:06 PM source source source data data data Bupreno Absent 5 ng/mL No No No Oct 20 rphine informa informa informa 2016 Lvl tion in tion in tion in 8:06 PM source source source data data data Creatin 114.0 No mg/dL No \\.br\\Gr Oct 20 ine Urn informa informa eater 2016 tion in tion in than 8:06 PM source source 20: data data Consist ent with valid sample\\ .br\\Gre ater than 2 but less than 20: Possibl e dilutio n\\.br\\L ess than 2: Questio nable valid sample Procedu These No No No No Oct 20 re Note drug informa informa informa informa 2016 Reflex classes tion in tion in tion in tion in 8:06 PM have source source source source been data data data data screene d by immunoa ssaosman and are for medical purpose s only. Results should not be used for non-med ical purpose s. These results are only valid for urine specime ns. Any contami nation with vaginal pool/am niotic fluid could cause erroneo us results . Vit D 25-OH Observa Value Referen Units Interpr Notes Date tion ce etation Range Vitamin 31.4 30.0 - ng/mL No INTERPR Tima 10 D-25 120.0 informa ETIVE 2015 OH tion in INFORMA 9:17 AM source TION: data Vitamin D, 25-Hydr oxy\\.br \\\\.br\\< 20 ng/mL Deficie ncy\\.br \\20 - 29 ng/mL Insuffi ciency\\ .br\\30 - 80 ng/mL Optimum Level\\. br\\>120 ng/mL Possibl e Toxicit y\\.br\\\\ .br\\NOT E: For infants and childre n up to 17 years of age, the optimum level is >=20 ng/mL. This assay accurat freida quantif ies the sum of vitamin D3, 25-Hydr oxy and vitamin D2, 25-Hydr oxy. Glyco Observa Value Referen Units Interpr Notes Date tion ce etation Range Hemoglo 5.2 <=7.0 % No Initial Jan 19 bin informa 2014 A1c/Hem tion in Diagnos 9:14 AM oglobin source tic .total data Criteri in a\\.br\\< Blood 5.7 % Normal\\ .br\\5.7 - 6.4 % At risk for diabete s mellitu s\\.br\\> = 6.5 % Consist ent with diabete s mellitu s\\.br\\\\ .br\\Antonia betes monitor ing\\.br \\Target Value (ADA recomme nded): < 7 % Lipid Scr Observa Value Referen Units Interpr Notes Date tion ce etation Range Cholest 159 <=200 mg/dL No < 200 Jan 18 luis alberto informa 2014 [Percen tion in 8:25 PM tile] source Desirab data le\\.br\\ 200 - 239 Borderl ine High\\.b r\\>= 240 High TRIGLYC 50 <=150 mg/dL No < 150 Jan 9 ERIDES. informa 2014 TOTAL tion in Normal\\ 8:25 PM source .br\\150 data - 199 Borderl ine High\\.b r\\200 - 499 High\\.b r\\ >= 500 Very High CHOLEST 57 >=40 mg/dL No > 60 Jan 9 EROLS.I informa 2014 N HDL tion in Optimal 8:25 PM source \\.br\\40 data - 60 Accepta ble\\.br \\ < 40 Low LDL 92 <=100 mg/dL No < 100 Jan 9 Calcula informa 2014 mary tion in 8:25 PM source Optimal data \\.br\\10 0 - 129 Near or above optimal \\.br\\13 0 - 159 Borderl ine High\\.b r\\160 - 189 High\\.b r\\ >= 190 Very High TSH Observa Value Referen Units Interpr Notes Date tion ce etation Range Thyrotr 0.932 0.270 - mcIU/mL No No Jan 9 opin 4.200 informa informa 2015 [Units/ tion in tion in 8:25 PM volume] source source in data data Serum or Plasma Auto Diff Observa Value Referen Units Interpr Notes Date tion ce etation Range Neutrop 66.1 No % No No Jan 9 hils informa informa informa 2014 [#/volu tion in tion in tion in 7:53 PM me] in source source source Blood data data data by Automat ed count Lymphoc 22.1 No % No No Jan 9 ytes informa informa informa 2014 [#/volu tion in tion in tion in 7:53 PM me] in source source source Blood data data data by Automat ed count Monocyt 8.7 No % No No Jan 9 es informa informa informa 2014 [#/volu tion in tion in tion in 7:53 PM me] in source source source Blood data data data by Automat ed count Eos 2.8 No % No No Jan 9 Percent informa informa informa 2015 tion in tion in tion in 7:53 PM source source source data data data Baso 0.3 No % No No Jan 9 Percent informa informa informa 2015 tion in tion in tion in 7:53 PM source source source data data data Neut# 5.2 1.8 - x10(3)/ No No Jan 9 7.7 mcL informa informa 2015 tion in tion in 7:53 PM source source data data Lymph# 1.7 0.6 - x10(3)/ No No Jan 9 4.8 mcL informa informa 2015 tion in tion in 7:53 PM source source data data Wirt# 0.7 0.0 - x10(3)/ No No Jan 9 1.3 mcL informa informa 2015 tion in tion in 7:53 PM source source data data Eos# 0.2 0.0 - x10(3)/ No No Jan 9 0.5 mcL informa informa 2015 tion in tion in 7:53 PM source source data data Baso# 0.0 0.0 - x10(3)/ No No Tima 9 0.2 mcL informa informa 2015 tion in tion in 7:53 PM source source data data CBC Observa Value Referen Units Interpr Notes Date tion ce etation Range LEUKOCY 7.8 4.0 - x10(3)/ No No Jan 18 JORGE ALBERTO 11.0 mcL informa informa 2015 tion in tion in 7:53 PM source source data data Erythro 4.63 3.80 - x10(6)/ No No Jan 18 cytes 5.10 [facility] informa informa 2015 [#/volu tion in tion in 7:53 PM me] in source source Blood data data by Automat ed count Hemoglo 14.8 12.0 - gm/dL No No Jan 18 bin 15.6 informa informa 2015 [Mass/v tion in tion in 7:53 PM olume] source source in data data Blood Hematoc 43.7 35.7 - % No No Jan 18 rit 45.9 informa informa 2015 [Volume tion in tion in 7:53 PM source source Fractio data data n] of Blood by Automat ed count Erythro 94.4 82.5 - fL No No Jan 18 cyte 99.8 informa informa 2015 mean tion in tion in 7:53 PM corpusc source source ular data data volume [Entiti c volume] by Automat ed count Erythro 32.1 27.0 - pg No No Jan 18 cyte 34.3 informa informa 2015 mean tion in tion in 7:53 PM corpusc source source ular data data hemoglo bin [Entiti c mass] by Automat ed count Erythro 34.0 32.1 - gm/dL No No Jan 18 cyte 35.3 informa informa 2015 mean tion in tion in 7:53 PM corpusc source source ular data data hemoglo bin concent ration [Mass/v olume] by Automat ed count Erythro 12.0 11.5 - % No No Jan 18 cyte 15.0 informa informa 2015 distrib tion in tion in 7:53 PM ution source source width data data [Ratio] by Automat ed count Platele 328 144 - x10(3)/ No No Jan 18 ts 423 mcL informa informa 2015 [#/volu tion in tion in 7:53 PM me] in source source Blood data data by Automat ed count MPV 7.9 6.8 - fL No No Jan 18 10.8 informa informa 2015 tion in tion in 7:53 PM source source data data
--- OUTSIDE RECORDS SUMMARY | 2017-05-25 14:38 | External Medical Summary Rpt ---
[...] source source source AM data data data [id number].placental [Presence] in Vaginal fluid Observa Value Referen [...] than 35 weeks for positive results obtained [id number] weeks and 30 weeks,6 days of gestation [...] than 35 weeks for positive results obtained [id number] weeks and 30 weeks,6 days of gestation [...] ES CONTACT [facility] [phone] NE. Gestation No No No No January [...] in 6:10 PM source source data data Desha# 0.5 0.0 - x10(3)/ No No Feb [...] assay utilize s the Illumig aniya by [employer] n[employer] and its perform ance has been verifie d by [facility]. A negativ [...] using the Aptima Combo 2 assay from [employer] be.\\.br \\A negativ e result does not [...] of this test were validat ed by [facility] are laborat ory. This assay [...] develop ed and validat ed by the [facility] are laborat ory. Detaile d [...] in 8:12 AM source source data data Desha# 0.5 0.0 - x10(3)/ No No Mar 10 1.3 mcL informa informa 2016 tion in tion in 8:12 AM source source data data Eos# 0.2 0.0 - x10(3)/ No No Mar 10 0.5 [facility] informa informa 2016 tion in tion in 8:12 AM source source data data Baso# 0.0 0.0 - x10(3)/ No No Mar 10 0.2 [facility] informa informa 2016 tion in tion in 8:12 AM source source data data CBC Observa Value Referen Units Interpr Notes Date tion ce etation Range LEUKOCY 10.7 4.0 - x10(3)/ No No Mar 10 JORGE ALBERTO 11.0 [facility] informa informa 2016 tion in tion in 8:12 AM source source data data Erythro 3.87 3.80 - x10(6)/ No No Mar 21 cytes 5.10 [facility] informa informa 2016 [#/volu tion in [...] erral from:\\. br\\THERESE TIMOTHY LITTLEJOHN , CNM [facility] are\\.br \\[facility] [address]\\. br\\[address] [place] [address]\\. br\\[place] [id number] Table Saw Operator [phone] 5\\.br\\P cecilio: [phone] Reading Room \\.br\\F ax [phone] 6\\.br\\- ------- ------- ------- ------- ------- ------- ------- ------- ------- ------\\ .br\\PAT IENT INFORMA TION:\\. br\\Name : SHERIDAN [place] MR#: [id number] 4\\.br\\A ge: 26 y/o Exam Date: 03/21/20 16\\.br\\ : [birth year]19 89 Visit #: 4\\.br\\L MP: 09/10/19 16 Locatio n: [facility]\\.br\\ [facility] are-- [facility] shruthi\\.br\\# Fetuses : 1\\.br\\I NDICATI ONS: [...] r\\Three Vessel View Aortic Arch\\.b r\\Cardi ac [place] Cardiac Positio n\\.br\\F etal Heart Rate Lungs\\. br\\Diap hragm IVC\\.br \\SVC Stomach \\.br\\Ki dney - Left Kidney - Right\\. br\\Blad candy Bowel\\. br\\Cara dot Upper Extremi ties\\.b r\\Lower Extremi ties\\.b r\\Subop timal\\. br\\---- ------\\ .br\\Marty tral Wall\\.b r\\Not Visuali zed\\.br \\------ ------- -\\.br\\D uctal Arch\\.b r\\Abnor mal\\.br \\------ --\\.br\\ None identif ied\\.br \\SLING OPERATOR FINDING S:\\.br\\ Uterus: Normal\\ .br\\Ova my: Left: [...] using the Aptima Combo 2 assay from [employer] be.\\.br \\A negativ e result does not complet frieda rule out a Chlamyd ia trachom atis [...] of this test were validat ed by [facility] are laborat ory. This assay [...] develop ed and validat ed by the [facility] are laborat ory. Detaile d [...] .br\\Ref erral from:\\. br\\RACQUEL JOHNSON MD @ [facility] are\\.br \\[facility] [place] [address]\\. br\\[address] [place] [address]\\. [place]\\[place] [address] Table Saw Operator \\.br\\P cecilio: Reading Room [phone]\\.br\\F ax: [phone] Fax \\.br\\- ------- ------- ------- ------- ------- ------- ------- ------- ------- ------\\ .br\\PAT IENT INFORMA TION:\\. br\\Name : SHERIDAN Hawkins MR#: [id number] 4\\.br\\A ge: 26 y/o Exam Date: 02/29/20 16\\.br\\ : 01/31/19 88 Visit #: 3\\.br\\L MP: 09/10/19 16 [facility]atio n[facility]\\.br\\ [facility] are-- [place] d\\.br\\# Fetuses : 1\\.br\\I NDICATI [...] r\\Three Vessel View Aortic Arch\\.b r\\Cardi ac [place] Cardiac Positio n\\.br\\F etal Heart Rate Diaphra [...] fluid volume is normal. No gross \\. br\\marhsal omic abnorma lities are identif ied. Recomme [...] .br\\Ref erral from:\\. br\\KILEY LITTLEJOHN MD ([place]) [facility] are\\.br \\[facility] [address] [facility]\\. br\\[address] [facility] [place] [address]\\. br\\[place], Table Saw Operator \\.br\\P cecilio: Reading Room \\.br\\F ax: [phone] Fax \\.br\\- ------- ------- ------- ------- ------- ------- ------- ------- ------- ------\\ .br\\PAT IENT INFORMA TION:\\. br\\Name : SHERIDAN Hawkins MR#: [id number] 4\\.br\\A ge: 25 y/o Exam Date: 01/30/20\\.br\\ : 01/31/19 88 Visit #: 2\\.br\\L MP: 09/10/19 [facility]atio n[facility]\\.br\\ [facility] are-- [place] d\\.br\\# Fetuses : 1\\.br\\I HARRIETICATI [...] [place]\\.b r\\Aorti c Arch Cardiac [place]\\.b r\\Cardi ac Positio n Heart Rate\\.b r\\Diaph [...] br\\Abno rmal\\.b r\\----- ---\\.br \\None identif ied\\.br \\SLING OPERATOR FINDING S:\\.br\\ Uterus: Normal\\ .br\\Ova my: Left: [...] lying, measuri ng 1.4 cm from the\\.br \\legal summer intern al os.\\.br \\Visual ization of the [...] Notes Date tion ce etation Range hCG [id number] No mIU/mL No No Apr 6 Quant [...] Survey\\ .br\\Ref erral from:\\. br\\KILEY LITTLEJOHN MD ([place]) [facility] are\\.br \\[facility] [address]\\. br\\[address] [place] [address]\\. br\\[place], [place] Table Saw Operator [phone]\\.br\\P cecilio: Reading Room \\.br\\F ax: [phone] Fax \\.br\\- ------- ------- ------- ------- ------- ------- ------- ------- ------- ------\\ .br\\PAT IENT INFORMA TION:\\. br\\Name : SHERIDAN Hawkins MR#: [id number] 4\\.br\\A ge: 25 y/o Exam Date: 6\\.br\\D OB: 01/31/19 89 Visit #: 1\\.br\\L MP: 09/10/19 16 Locatio n: [facility]\\.br\\ [facility] are-- [facility] d\\.br\\# Fetuses : 1\\.br\\I NDICATI ONS: [...] :\\.br\\V iabilit y:\\.br\\ GESTATI ON:\\.br \\\\ .br\\Sac [place] ump Heart\\. br\\Sandra urement [place] Sac Length [...] using the Aptima Combo 2 assay from [employer] be.\\.br \\A negativ e result does not [...] of this test were validat ed by [facility] are laborat ory. This assay [...] develop ed and validat ed by the [facility] are laborat ory. Detaile d [...] in 9:23 PM source source data data Desha# 0.7 0.0 - x10(3)/ No No Oct [...] in 7:53 PM source source data data Desha# 0.7 0.0 - x10(3)/ No No Jan [...] x10(6)/ No No Jan 18 cytes 5.10 [facility] informa informa 2015 [#/volu tion in [...]
== END 2017-05-25 16:55 | disposition home or self-care (01) | DRG 775 ==
LOC: OB 18:50 → OBOUT 18:50 → OB 20:27
PROVIDERS: Nurse Practitioner Obstetrics & Gynecology
PROC: 10E0XZZ Delivery of Products of Conception, External Approach (ICD-10-PCS; principal; 2017-05-22)
DX: O69.81X0 Labor and delivery complicated by cord around neck, without compression, not applicable or unspecified (principal); Z37.0 Single live birth; Z3A.38 38 weeks gestation of pregnancy
CPT/HCPCS: Q2038